=== PATIENT | female | born 1950 | race Caucasian/White ===

== ENCOUNTER 2018-07-26 01:31 | Emergency (ER) | payer MEDICARE, SELFPAY ==
[2018-07-26] VITALS (8 sets, daily range): BP systolic 123–152; BP diastolic 67–79; PULSE 86–110; RESP 16–24; TEMP 36.9; O2SAT 87–99; BMI 40.8
--- NOTE | 2018-07-26 01:36 | ED.RN ---
CALLED FOR EKG PER RN REQUEST, NO OLD EKGS IN MUSE
--- NOTE | 2018-07-26 01:38 | RAD_ITS ---
STUDY: X-RAY CHEST REASON FOR EXAM: Female, 68 years old. Chest cramping nausea TECHNIQUE: Single AP portable view of the chest. COMPARISON: None. FINDINGS: The lungs are clear and expanded. There is no demonstrated pleural abnormality. Is mild to moderate cardiac enlargement. There is a focal enlarged appearance of the right side of the heart or right middle lobe opacification. Normal mediastinum and jose roberto. Normal visualized pulmonary arteries. There is atherosclerotic calcification of the aortic arch with tortuosity. There is a levoscoliosis of the thoracic spine. Normal visualized ribs, clavicles, and shoulders. There is no demonstrated abnormality of the visualized soft tissue structures of the upper abdomen. RAD/Chest 1 View (Portable) IMPRESSION: All appearance of the right cardiophrenic angle.. Possible prominent cardiac fat pad and/or cardiac enlargement versus potentially underlying right middle lobe mass or consolidation. Electronically Signed: Shelley Aguirre MD at 2:24 EDT Tel , Service support ,
--- NOTE | 2018-07-26 01:38 | EKG12_ITS ---
Test Reason : CHEST PAIN Blood Pressure : / mmHG Vent. Rate : 107 BPM Atrial Rate : 107 BPM P-R Int : 168 ms QRS Dur : 096 ms QT Int : 342 ms P-R-T Axes : 053 025 058 degrees QTc Int : 456 ms Sinus tachycardia Low voltage QRS Borderline ECG Confirmed by RAJAN SANDERS MD ([id number]), film editor supervisor SAMSON RAMIREZ ([id number] on 08/02/2018 2:03:44 PM Referred By: MARY Confirmed By:RAJAN SANDERS MD
[2018-07-26 01:45] LABS: Absolute Lymphocyte Count 1.17 X10^3/ul (0.83-4.51); Absolute Neutrophil Count 11.5 X10^3/uL (2.0-7.7); Basophil# 0.03 X10^3/uL; Basophil% 0.2 % (0-1); Eosinophil# 0.39 X10^3/uL; Eosinophils% 2.8 % (0-5); Hematocrit 43.3 % (37-47); Hemoglobin 14.8 g/dl (12.0-15.0); Lymphocyte # 1.17 X10^3/ul (4.0); Lymphocyte % 8.4 % (19-41); Mean Corp Hgb Conc 34.2 g/gl (32-36); Mean Corpuscular Hgb 29.9 pg (27.0-32.0); Mean Corpuscular Volume 87.5 fL (81-99); Mean Platelet Vol. 9.1 fl (6.2-12.0); Monocyte# 0.78 X10^3/uL; Monocyte% 5.6 % (0-10); Neutrophil # 11.53 X10^3/uL (2.7-7.7); Neutrophil % 82.6 % (47-70); Platelet Count 331 K/mm3 (150-450); RBC Distribution Width CV 14.1 % (11.6-14.6); Red Blood Count 4.95 M/mm3 (4.2-5.4)
[2018-07-26 01:47] LABS: POSITIVE COUNT NO; POSITIVE DIFFERENTIAL NO; POSITIVE MORPHOLOGY NO
[2018-07-26 01:50] LABS: International Normalized Ratio 1.2; Prothrombin Time (Protime)PT. 14.9 SECONDS (11.7-14.9)
--- NOTE | 2018-07-26 02:00 | CT_ITS ---
STUDY: CT ABDOMEN AND PELVIS WITHOUT CONTRAST REASON FOR EXAM: Female, 68 years old. Chest cramping. Nausea and vomiting. Right upper quadrant pain. RADIATION DOSAGE (If Supplied By Facility): CTDIvol = ( 21.39 ) mGy, DLP = ( 993.88 ) mGycm TECHNIQUE: Transaxial images were obtained from the dome of the diaphragm to the symphysis pubis without oral contrast, and without intravenous contrast. Sagittal and coronal images were reconstructed. Individualized dose optimization techniques were used for this CT. COMPARISON: Chest x-ray 07/26/2018. FINDINGS: The visualized lung bases are unremarkable. The visualized portions of the heart are within normal limits. There is decreased attenuation of the liver consistent with steatosis. Normal gallbladder and extrahepatic biliary system. Normal spleen. Normal pancreas. Normal bilateral adrenal glands. Normal right kidney. Normal left kidney. There is a small hiatal hernia. There is a 1.9 cm diverticulum of the duodenal sweep. Otherwise normal small intestine. There are multiple colonic diverticula consistent with diverticulosis. A very diminutive normal appendix is seen on axial images 100-106. There is atherosclerotic calcification of the abdominal aorta, without a demonstrated aneurysm. Normal inferior vena cava. Normal retroperitoneum. Normal urinary bladder. There is a small left inguinal hernia containing fat, but no bowel. There are multilevel degenerative changes of the visualized lumbar spine. CT/Abdomen/Pelvis without Cont IMPRESSION: Small hiatal hernia. Colonic diverticulosis. Small duodenal diverticulum. No evidence for acute diverticulitis. Atherosclerosis. Fatty liver. No evidence for acute pathology. Electronically Signed: Isaak Sheffield MD at 3:22 EDT , Service support ,
--- NOTE | 2018-07-26 02:02 | ED.VISSUMM ---
- ER Visit Summary Date of Service: 07/26/18 Chief Complaint: Vomiting and epigastric pain History of Present Illness: The patient is a 68 F who presents for several hours of vomiting and epigastric pain. Patient states she was driving home when she began having vomiting. This was followed by abdominal cramping in the substernal and epigastric region radiating under the right breast. She had multiple episodes of vomiting. It is worse when she coughs or sits up straight but is relieved by nothing. She had a fever of 100.7 at home. Her throat is sore and raw after the vomiting. She complains of cough and shortness of breath associated with the actual vomiting. Pain is radiating into the back. Patient still has her gallbladder. She denies history of drinking alcohol. Has history of diabetes and hypertension. No coronary artery disease. Physical Examination: Vital signs: afebrile, hemodynamically stable, no hypoxia on room air General: well nourished, well developed, in no distress, appears uncomfortable Skin: warm, dry, no rash, no pallor HEENT: normocephalic and atraumatic; PERRL, EOMI, moist mucous membranes Cardiovascular: Tachycardic rate and rhythm without murmurs, no peripheral edema, 2+ pulses all distal extremities Respiratory: No increased work of breathing, lungs are clear to auscultation bilaterally, no rales, rhonchi or wheezing Abdominal: Abdomen is soft, tender in the epigastrium and right upper quadrant, with normoactive bowel sounds, no guarding or rebound, no masses MSK: Moves all extremities, no deformities, normal strength Neuro: Awake and alert, oriented ?4. No facial droop, sensation and motor function intact and symmetric Test Results: Abnormal Lab Results 07/26/18 07/26/18 07/26/18 01:34 01:34 01:34 WBC 14.0 H RBC 4.95 Hgb 14.8 Hct 43.3 MCV 87.5 MCH 29.9 MCHC 34.2 RDW 14.1 RDW Differential 44.0 H Plt Count 331 MPV 9.1 Immature Gran % (Auto) 0.400 Neut % (Auto) 82.6 H Lymph % (Auto) 8.4 L [place] % (Auto) 5.6 Eos % (Auto) 2.8 Baso % (Auto) 0.2 Absolute Neuts (auto) 11.5 H Absolute Lymphs (auto) 1.17 Total Counted Not Reportable PT 14.9 INR 1.2 Sodium 138 Potassium 4.4 Chloride 104 Carbon Dioxide 25.0 Anion Gap 9 BUN 17 Creatinine 1.10 H Estim Creat Clear Calc 36.42 Est GFR (MDRD) Af Amer 63 Est GFR (MDRD) Non-Af 52 L BUN/Creatinine Ratio 15.5 Glucose 164 H Calcium 8.8 Total Bilirubin Direct Bilirubin AST ALT Alkaline Phosphatase Troponin I < 0.015 Total Protein Albumin Globulin Lipase 07/26/18 01:34 WBC RBC Hgb Hct MCV MCH MCHC RDW RDW Differential Plt Count MPV Immature Gran % (Auto) Neut % (Auto) Lymph % (Auto) [place] % (Auto) Eos % (Auto) Baso % (Auto) Absolute Neuts (auto) Absolute Lymphs (auto) Total Counted PT INR Sodium Potassium Chloride Carbon Dioxide Anion Gap BUN Creatinine Estim Creat Clear Calc Est GFR (MDRD) Af Amer Est GFR (MDRD) Non-Af BUN/Creatinine Ratio Glucose Calcium Total Bilirubin 0.50 Direct Bilirubin 0.16 AST 28 ALT 38 Alkaline Phosphatase 110 Troponin I Total Protein 7.8 Albumin 3.9 Globulin 3.9 Lipase 136 Clinical Impression(s) from Imaging Studies Chest X-Ray 07/26/18 01:38 IMPRESSION: All appearance of the right cardiophrenic angle.. Possible prominent cardiac fat pad and/or cardiac enlargement versus potentially underlying right middle lobe mass or consolidation. Electronically Signed: Shelley Aguirre MD at 2:24 EDT Tel , Service support , Abdomen/Pelvis CT 07/26/18 02:00 IMPRESSION: Small hiatal hernia. Colonic diverticulosis. Small duodenal diverticulum. No evidence for acute diverticulitis. Atherosclerosis. Fatty liver. No evidence for acute pathology. Electronically Signed: Isaak Sheffield MD at 3:22 EDT , Service support , Medications Given Sodium Chloride () 1,000 mls @ 500 mls/hr IV .Q2H SAMI Last Admin: 07/26/18 04:27 Dose: 500 mls/hr Admin: 07/26/18 02:14 Dose: 500 mls/hr Discontinued Medications Al Hydroxide/Mg Hydroxide (Mylanta Ii) 30 ml PO X1 ONE Stop: 07/26/18 05:41 Last Admin: 07/26/18 05:59 Dose: 30 ml Dicyclomine HCl (Bentyl) 20 mg PO X1 ONE Stop: 07/26/18 05:41 Last Admin: 07/26/18 05:57 Dose: 20 mg Lidocaine HCl (Xylocaine Viscous) 15 ml PO X1 ONE Stop: 07/26/18 05:41 Last Admin: 07/26/18 05:59 Dose: 15 ml Morphine Sulfate () 4 mg IV X1 ONE Stop: 07/26/18 02:01 Last Admin: 07/26/18 02:15 Dose: 4 mg Multi-Ingredient GI Drug () 1 ea PO X1 ONE Stop: 07/26/18 05:41 Last Admin: 07/26/18 06:00 Dose: Not Given Ondansetron HCl (Zofran) 4 mg IV X1 ONE Stop: 07/26/18 02:01 Last Admin: 07/26/18 02:15 Dose: 4 mg Emergency Department Course and Treatment: Patient presents with substernal and epigastric pain radiating into the right upper quadrant. Differential includes intrathoracic pathology including acute coronary syndrome, pneumonia or PE, but given patient's history of fever, tachycardia, and epigastric pain radiating into the right upper quadrant with vomiting, it is also likely an intra-abdominal process. EKG showed a sinus tachycardia without any ischemic changes. CBC, BMP, hepatic panel and lipase were performed. Patient was given morphine and Zofran as well as IV fluids for symptomatic relief. Labs showed mild leukocytosis of 14, which may be related to vomiting. No electrolyte derangements. No hepatic dysfunction, normal lipase. Troponin negative. Chest x-ray showed cardiac enlargement versus fat pad versus infiltrate. A CT the abdomen and pelvis showed no acute intra-abdominal findings and did not demonstrate any infiltrates in the visualized lung gupta. Patient had an episode of hypoxia to 86% on room air and responded well to nasal cannula oxygen. She remained tachycardic but did not have any overt shortness of breath. She continued to have the upper abdominal/lower right-sided chest pain with radiation into the back. Because of the symptoms without any other alternative diagnosis, CTA of the chest was performed to evaluate for pulmonary embolism or aortic dissection. Negative for PE and dissection. Patient had improvement in her symptoms but continued to have episodic crampiness. She was given a GI cocktail and Bentyl. She had resolution of her symptoms after this. Discussed with patient the episodes of hypoxia while she was resting, she states she does have a history of sleep apnea and usually uses a CPAP at night. Patient at no point had any symptoms with her drops and O2 saturation and denied any shortness of breath or related complaints. She ambulated to the bathroom without any difficulty. Patient was feeling better and stated that she felt well enough to go home. Patient was ambulated prior to discharge on pulse oximetry and remained in the low 90s. She had no drop in her pulse oximetry with ambulation. She remained asymptomatic. I suspect patient may be at her baseline, with pulse oximetry changes related to her body habitus, positioning with sitting with component of obesity hypoventilation syndrome, and sleep apnea. She was given prescription for Bentyl and Zofran. She is to follow-up with her efficiency clerk for further evaluation of a small hiatal hernia that was noted on her scan. Patient was discharged home with symptoms improved. Treatment Plan: [] Disposition: [] Impression: Abdominal pain with vomiting, hiatal hernia This note was generated with [employer] dictation software. It may contain incorrect words, spelling, and punctuation that were not noted in review of the chart prior to signing ED Disposition - Plan for ED Patient: Disposition: Home or Assisted Living Chief Complaint: Chest Pain Instructions: What Is a Hiatal Hernia?, ED Abdominal Pain Unkn Cause Prescriptions: Ondansetron [Zofran Odt] 4 mg PO Q8H PRN PRN #10 tab PRN Reason: Nausea Dicyclomine HCl [Bentyl] 20 mg PO TIDAC #20 cap Referrals: Inder Kruse MD [Primary Care Provider] - 1-2 Days if not improving Additional Instructions: Please follow-up with your efficiency clerk for reevaluation and discussion of whether you need an endoscopy to further evaluate your upper abdominal cramping and vomiting. Your scan did show a hiatal hernia with mild inflammation. Take the medications as prescribed as needed for symptoms. If you have any worsening of your condition or any new concerning symptoms, please return immediately to the emergency department for another evaluation.
--- NOTE | 2018-07-26 02:06 | ED.DCSUM_ITS ---
- ER Visit Summary Date of Service: 07/26/18 Chief Complaint: Vomiting and epigastric pain History of Present Illness: The patient is a 68 F who presents for several hours of vomiting and epigastric pain. Patient states she was driving home when she began having vomiting. This was followed by abdominal cramping in the substernal and epigastric region radiating under the right breast. She had multiple episodes of vomiting. It is worse when she coughs or sits up straight but is relieved by nothing. She had a fever of 100.7 at home. Her throat is sore and raw after the vomiting. She complains of cough and shortness of breath associated with the actual vomiting. Pain is radiating into the back. Patient still has her gallbladder. She denies history of drinking alcohol. Has history of diabetes and hypertension. No coronary artery disease. Physical Examination: Vital signs: afebrile, hemodynamically stable, no hypoxia on room air General: well nourished, well developed, in no distress, appears uncomfortable Skin: warm, dry, no rash, no pallor HEENT: normocephalic and atraumatic; PERRL, EOMI, moist mucous membranes Cardiovascular: Tachycardic rate and rhythm without murmurs, no peripheral edema, 2+ pulses all distal extremities Respiratory: No increased work of breathing, lungs are clear to auscultation bilaterally, no rales, rhonchi or wheezing Abdominal: Abdomen is soft, tender in the epigastrium and right upper quadrant, with normoactive bowel sounds, no guarding or rebound, no masses MSK: Moves all extremities, no deformities, normal strength Neuro: Awake and alert, oriented ?4. No facial droop, sensation and motor function intact and symmetric Test Results: Abnormal Lab Results 07/26/18 07/26/18 07/26/18 01:34 01:34 01:34 WBC 14.0 H RBC 4.95 Hgb 14.8 Hct 43.3 MCV 87.5 MCH 29.9 MCHC 34.2 RDW 14.1 RDW Differential 44.0 H Plt Count 331 MPV 9.1 Immature Gran % (Auto) 0.400 Neut % (Auto) 82.6 H Lymph % (Auto) 8.4 L [place] % (Auto) 5.6 Eos % (Auto) 2.8 Baso % (Auto) 0.2 Absolute Neuts (auto) 11.5 H Absolute Lymphs (auto) 1.17 Total Counted Not Reportable PT 14.9 INR 1.2 Sodium 138 Potassium 4.4 Chloride 104 Carbon Dioxide 25.0 Anion Gap 9 BUN 17 Creatinine 1.10 H Estim Creat Clear Calc 36.42 Est GFR (MDRD) Af Amer 63 Est GFR (MDRD) Non-Af 52 L BUN/Creatinine Ratio 15.5 Glucose 164 H Calcium 8.8 Total Bilirubin Direct Bilirubin AST ALT Alkaline Phosphatase Troponin I < 0.015 Total Protein Albumin Globulin Lipase 07/26/18 01:34 WBC RBC Hgb Hct MCV MCH MCHC RDW RDW Differential Plt Count MPV Immature Gran % (Auto) Neut % (Auto) Lymph % (Auto) [place] % (Auto) Eos % (Auto) Baso % (Auto) Absolute Neuts (auto) Absolute Lymphs (auto) Total Counted PT INR Sodium Potassium Chloride Carbon Dioxide Anion Gap BUN Creatinine Estim Creat Clear Calc Est GFR (MDRD) Af Amer Est GFR (MDRD) Non-Af BUN/Creatinine Ratio Glucose Calcium Total Bilirubin 0.50 Direct Bilirubin 0.16 AST 28 ALT 38 Alkaline Phosphatase 110 Troponin I Total Protein 7.8 Albumin 3.9 Globulin 3.9 Lipase 136 Clinical Impression(s) from Imaging Studies Chest X-Ray 07/26/18 01:38 IMPRESSION: All appearance of the right cardiophrenic angle.. Possible prominent cardiac fat pad and/or cardiac enlargement versus potentially underlying right middle lobe mass or consolidation. Electronically Signed: Shelley Aguirre MD at 2:24 EDT Tel , Service support , Abdomen/Pelvis CT 07/26/18 02:00 IMPRESSION: Small hiatal hernia. Colonic diverticulosis. Small duodenal diverticulum. No evidence for acute diverticulitis. Atherosclerosis. Fatty liver. No evidence for acute pathology. Electronically Signed: Isaak Sheffield MD at 3:22 EDT , Service support , Medications Given Sodium Chloride () 1,000 mls @ 500 mls/hr IV .Q2H SAMI Last Admin: 07/26/18 04:27 Dose: 500 mls/hr Admin: 07/26/18 02:14 Dose: 500 mls/hr Discontinued Medications Al Hydroxide/Mg Hydroxide (Mylanta Ii) 30 ml PO X1 ONE Stop: 07/26/18 05:41 Last Admin: 07/26/18 05:59 Dose: 30 ml Dicyclomine HCl (Bentyl) 20 mg PO X1 ONE Stop: 07/26/18 05:41 Last Admin: 07/26/18 05:57 Dose: 20 mg Lidocaine HCl (Xylocaine Viscous) 15 ml PO X1 ONE Stop: 07/26/18 05:41 Last Admin: 07/26/18 05:59 Dose: 15 ml Morphine Sulfate () 4 mg IV X1 ONE Stop: 07/26/18 02:01 Last Admin: 07/26/18 02:15 Dose: 4 mg Multi-Ingredient GI Drug () 1 ea PO X1 ONE Stop: 07/26/18 05:41 Last Admin: 07/26/18 06:00 Dose: Not Given Ondansetron HCl (Zofran) 4 mg IV X1 ONE Stop: 07/26/18 02:01 Last Admin: 07/26/18 02:15 Dose: 4 mg Emergency Department Course and Treatment: Patient presents with substernal and epigastric pain radiating into the right upper quadrant. Differential includes intrathoracic pathology including acute coronary syndrome, pneumonia or PE, but given patient's history of fever, tachycardia, and epigastric pain radiating into the right upper quadrant with vomiting, it is also likely an intra- abdominal process. EKG showed a sinus tachycardia without any ischemic changes. CBC, BMP, hepatic panel and lipase were performed. Patient was given morphine and Zofran as well as IV fluids for symptomatic relief. Labs showed mild leukocytosis of 14, which may be related to vomiting. No electrolyte derangements. No hepatic dysfunction, normal lipase. Troponin negative. Chest x-ray showed cardiac enlargement versus fat pad versus infiltrate. A CT the abdomen and pelvis showed no acute intra-abdominal findings and did not demonstrate any infiltrates in the visualized lung gupta. Patient had an episode of hypoxia to 86% on room air and responded well to nasal cannula oxygen. She remained tachycardic but did not have any overt shortness of breath. She continued to have the upper abdominal/lower right-sided chest pain with radiation into the back. Because of the symptoms without any other alternative diagnosis, CTA of the chest was performed to evaluate for pulmonary embolism or aortic dissection. Negative for PE and dissection. Patient had imp rovement in her symptoms but continued to have episodic crampiness. She was given a GI cocktail and Bentyl. She had resolution of her symptoms after this. Discussed with patient the episodes of hypoxia while she was resting, she states she does have a history of sleep apnea and usually uses a CPAP at night. Patient at no point had any symptoms with her drops and O2 saturation and denied any shortness of breath or related complaints. She ambulated to the bathroom without any difficulty. Patient was feeling better and stated that she felt well enough to go home. Patient was ambulated prior to discharge on pulse oximetry and remained in the low 90s. She had no drop in her pulse oximetry with ambulation. She remained asymptomatic. I suspect patient may be at her baseline, with pulse oximetry changes related to her body habitus, positioning with sitting with component of obesity hypoventilation syndrome, and sleep apnea. She was given prescription for Bentyl and Zofran. She is to follow-up with her net application support specialist for further evaluation of a small hiatal hernia that was noted on her scan. Patient was discharged home with symptoms improved. Treatment Plan: [] Disposition: [] Impression: Abdominal pain with vomiting, hiatal hernia This note was generated with [employer] dictation software. It may contain incorrect words, spelling, and punctuation that were not noted in review of the chart prior to signing ED Disposition - Plan for ED Patient: Disposition: Home or Assisted Living Chief Complaint: Chest Pain Instructions: What Is a Hiatal Hernia?, ED Abdominal Pain Unkn Cause Prescriptions: Ondansetron [Zofran Odt] 4 mg PO Q8H PRN PRN #10 tab PRN Reason: Nausea Dicyclomine HCl [Bentyl] 20 mg PO TIDAC #20 cap Referrals: Inder Kruse MD [Primary Care Provider] - 1-2 Days if not improving Additional Instructions: Please follow-up with your net application support specialist for reevaluation and discussion of whether you need an endoscopy to further evaluate your upper abdominal cramping and vomiting. Your scan did show a hiatal hernia with mild inflammation. Take the medications as prescribed as needed for symptoms. If you have any worsening of your condition or any new concerning symptoms, please return immediately to the emergency department for another evaluation.
[2018-07-26] MEDS: 0.9% Normal Saline 1,000 ML 500 ML IV ×2 (02:14→04:27)
[2018-07-26] MEDS: Ondansetron 4 MG/2 ML Vial IV (02:15)
[2018-07-26] MEDS: Morphine 4 MG/ML Syringe IV (02:15)
[2018-07-26 02:16] LABS: Anion Gap 9 (5-15); BUN 17 mg/dL (7-18); BUN/Creat Ratio 15.5 RATIO (10-20); Calcium,Total 8.8 mg/dL (8.5-10.1); Chloride 104 mmol/L (98-107); EST Glomerular Filtration Rate 52 mL/min (>60); Est Glom Filt Rate - Afr Amer 63 mL/min (>60); Estimated Creatinine Clearance 36.42 ml/min; Glucose 164 mg/dL (74-106); Potassium 4.4 mmol/L (3.5-5.1); Sodium Level 138 mmol/L (136-145)
[2018-07-26 02:20] LABS: AST(SGOT) 28 U/L (15-37); Alanine Aminotransfer ALT/SGPT 38 U/L (13-56); Albumin, Serum 3.9 g/dL (3.2-5.0); Alkaline Phosphatase 110 U/L (45-117); Bilirubin, Direct 0.16 mg/dL (0.00-0.30); Globulin 3.9 g/dL (2.2-4.2); Lipase 136 U/L (73-393); Protein, Total 7.8 g/dL (6.4-8.2)
--- NOTE | 2018-07-26 02:29 | ED.RN ---
PATIENT RESTING IN BED, OXYGEN SATURATION TO 86-88% ON ROOM AIR. APPLIED 2 L NASAL CANNULA OXYGEN LEVEL UP TO 93-95%. DR. MARY SHERWOOD.
--- NOTE | 2018-07-26 03:40 | CT_ITS ---
STUDY: CTA CHEST REASON FOR EXAM: Female, 68 years old. Right upper quadrant pain. Chest pressure. Nausea and vomiting. Hypoxia. History of hypertension and diabetes. RADIATION DOSAGE (If Supplied By Facility): CTDIvol = ( 16.50 ) mGy, DLP = ( 755.12 ) mGycm TECHNIQUE: The examination was performed with the intravenous administration of 100ML ml of Isovue 370 contrast material. Post-processing of the angiographic images was performed, with multiplanar reformation, but without 3D reconstruction. Individualized dose optimization techniques were used for this CT. COMPARISON: Noncontrast CT scan abdomen and pelvis 07/26/2018. FINDINGS: Normal enhancement of the main pulmonary artery and right and left pulmonary arteries. Normal enhancement of the bilateral peripheral pulmonary arteries. There is no demonstrated pulmonary embolism. There is mild atherosclerotic calcification of the thoracic aorta and visualized great vessels. There is no demonstrated aortic dissection. Normal heart and pericardium. There are coronary artery calcifications. There is a small hiatal hernia. There is mild infiltration of fat in the lower mediastinum, adjacent to the herniated portion of the stomach. This may represent traumatic contusion of fat related to passage through the diaphragmatic hiatus.. Alternatively, it might represent inflammation or other pathology involving the herniated portion of the stomach. Assessment of the herniated portion of the stomach is limited by nondistention. There is no mediastinal fluid collection or mediastinal emphysema to suggest gastric or esophageal perforation. There are small mediastinal lymph nodes which are normal in size and morphology.. Normal hilar regions. Normal visualized trachea and bronchi. The lungs are well expanded. Normal pulmonary parenchyma. Normal pleura. Normal chest wall structures. There are degenerative changes of thoracic spine. There is fatty infiltration of the liver. CT/CTA Chest W/WO Contrast IMPRESSION: No demonstrated pulmonary embolism or arterial dissection. Atherosclerosis. No evidence for acute cardiopulmonary pathology. Small hiatal hernia. Infiltration of lower mediastinal fat adjacent to the herniated portion of the stomach is of indeterminate significance, possibly representing inflammation or other pathology related to the herniated portion of the stomach. Would consider upper endoscopy for further evaluation. Electronically Signed: Isaak Sheffield MD at 4:28 EDT , Service support ,
[2018-07-26] MEDS: Dicyclomine 10 MG Capsule 20 MG PO (05:57)
[2018-07-26] MEDS: Mag Hydrox/Al Hydrox/Simeth 30 ML UDC PO (05:59)
--- NOTE | 2018-07-26 06:53 | DCINST.ED_ITS ---
ED Disposition - Plan for ED Patient: Disposition: Home or Assisted Living Chief Complaint: Chest Pain Instructions: ED Abdominal Pain Unkn Cause, What Is a Hiatal Hernia? Prescriptions: Ondansetron [Zofran Odt] 4 mg PO Q8H PRN PRN #10 tab PRN Reason: Nausea Dicyclomine HCl [Bentyl] 20 mg PO TIDAC #20 cap Referrals: Inder Kruse MD [Primary Care Provider] - 1-2 Days if not improving Additional Instructions: Please follow-up with your director of labor relations for reevaluation and discussion of whether you need an endoscopy to further evaluate your upper abdominal cramping and vomiting. Your scan did show a hiatal hernia with mild inflammation. Take the medications as prescribed as needed for symptoms. If you have any worsening of your condition or any new concerning symptoms, please return immediately to the emergency department for another evaluation.
== END 2018-07-26 07:22 | disposition home or self-care (01) ==
PROVIDERS: Emergency Provider Emergency Medicine; Family Provider Family Medicine; PCP Family Medicine
DX: K44.9 Diaphragmatic hernia without obstruction or gangrene (principal); R10.13 Epigastric pain; R10.11 Right upper quadrant pain; R11.2 Nausea with vomiting, unspecified; E11.9 Type 2 diabetes mellitus without complications; I10 Essential (primary) hypertension; G47.30 Sleep apnea, unspecified; E66.9 Obesity, unspecified; Z79.84 Long term (current) use of oral hypoglycemic drugs; Z79.899 Other long term (current) drug therapy
CPT/HCPCS: 71045; 71275; 74176; 80048; 80076; 83690; 84484; 85025; 85610; 93005; 96361; 96374; 96375; 99285; J7030; Q9967; A4216; J2405

== ENCOUNTER → 2018-08-25 20:00 | Outpatient (CLI) | payer MEDICARE, SELFPAY | PROVIDERS: Family Provider Family Medicine; PCP Family Medicine; Visit Provider Family Medicine | DX: G47.33 Obstructive sleep apnea (adult) (pediatric) (principal) | CPT/HCPCS: 95810; 95811 ==

== ENCOUNTER → 2018-11-28 06:54 | Outpatient (CLI) | payer MEDICARE, SELFPAY ==
[2018-07-26 01:32] VITALS: BMI 40.8
[2018-11-28 09:27] LABS: ALB/GLOB Ratio 1.2 RATIO (0.9-2.4); AST(SGOT) 44 U/L (15-37); Alanine Aminotransfer ALT/SGPT 41 U/L (13-56); Albumin, Serum 3.7 g/dL (3.2-5.0); Alkaline Phosphatase 114 U/L (45-117); Anion Gap 8 (5-15); BUN 20 mg/dL (7-18); BUN/Creat Ratio 22.4 RATIO (10-20); Calcium,Total 8.2 mg/dL (8.5-10.1); Chloride 109 mmol/L (98-107); Cholesterol 168 mg/dL (200); Creatinine, Serum 0.89 mg/dL (0.55-1.02); EST Glomerular Filtration Rate 67 mL/min (>60); Est Glom Filt Rate - Afr Amer 81 mL/min (>60); Globulin 3.2 g/dL (2.2-4.2); Glucose 125 mg/dL (74-106); High Density Lipoprotein 48 mg/dL; Potassium 4.6 mmol/L (3.5-5.1); Protein, Total 6.9 g/dL (6.4-8.2); Sodium Level 139 mmol/L (136-145); Triglycerides 120 mg/dL; Very Low Density Lipoprotein 24 mg/dL (5-40)
[2018-11-28 09:45] LABS: Hemoglobin A1c 6.5 % (4.2-6.3)
[2018-11-28 18:38] LABS: Microalbumin,Random Urine 9.3 mg/L (NO RANGE EST.); Microalbumin:Creatinine Ratio 5.9 mg/g CRE (<30 mg/g CRE)
== END ==
PROVIDERS: Family Provider Family Medicine; PCP Family Medicine; Referring Provider Family Medicine; Visit Provider Family Medicine
DX: E11.9 Type 2 diabetes mellitus without complications (principal); K21.9 Gastro-esophageal reflux disease without esophagitis; Z79.899 Other long term (current) drug therapy
CPT/HCPCS: 36415; 80053; 80061; 82043; 82570; 83036

== ENCOUNTER → 2018-12-01 19:58 | Outpatient (CLI) | payer MEDICARE, SELFPAY | PROVIDERS: Family Provider Family Medicine; PCP Family Medicine; Referring Provider Family Medicine; Visit Provider Family Medicine | DX: G47.33 Obstructive sleep apnea (adult) (pediatric) (principal) | CPT/HCPCS: 95811 ==

== ENCOUNTER → 2020-01-24 07:08 | Outpatient (CLI) | payer MEDICARE, SELFPAY ==
[2018-07-26 01:32] VITALS: BMI 40.8
[2020-01-24 07:57] LABS: Hemoglobin A1c 8.8 % (4.2-6.3)
[2020-01-24 08:04] LABS: AST(SGOT) 59 U/L (15-37); Alanine Aminotransfer ALT/SGPT 59 U/L (13-56); Albumin, Serum 3.5 g/dL (3.2-5.0); Alkaline Phosphatase 113 U/L (45-117); Anion Gap 6 (5-15); BUN 19 mg/dL (7-18); BUN/Creat Ratio 20.9 RATIO (10-20); Calcium,Total 8.8 mg/dL (8.5-10.1); Chloride 107 mmol/L (98-107); Cholesterol 166 mg/dL (200); Creatinine, Serum 0.91 mg/dL (0.55-1.02); EST Glomerular Filtration Rate 65 mL/min (>60); Est Glom Filt Rate - Afr Amer 79 mL/min (>60); Globulin 3.6 g/dL (2.2-4.2); Glucose 175 mg/dL (74-106); High Density Lipoprotein 49 mg/dL; Potassium 4.3 mmol/L (3.5-5.1); Protein, Total 7.1 g/dL (6.4-8.2); Sodium Level 138 mmol/L (136-145); Triglycerides 150 mg/dL; Very Low Density Lipoprotein 30 mg/dL (5-40)
[2020-01-24 08:47] LABS: Microalbumin,Random Urine 37.4 mg/L (NO RANGE EST.)
== END ==
PROVIDERS: PCP Family Medicine; Referring Provider Family Medicine; Visit Provider Family Medicine
DX: E11.65 Type 2 diabetes mellitus with hyperglycemia (principal)
CPT/HCPCS: 36415; 80053; 80061; 82043; 82570; 83036

== ENCOUNTER 2020-02-11 06:20 | Emergency (ER) | payer MEDICARE, SELFPAY ==
[2020-02-11 06:21] VITALS: BP 123/64; PULSE 92; RESP 18; TEMP 36.8; O2SAT 97; BMI 39.0
--- NOTE | 2020-02-11 06:46 | CT_ITS ---
STUDY: CT ABDOMEN AND PELVIS WITH CONTRAST REASON FOR EXAM: Female, 69 years old. N/V/D, RLQ PAIN, INTERMITTENT PAIN X 4 DAYS, HTN, DB, HLD RADIATION DOSAGE (If Supplied By Facility): CTDIvol = ( 14.96 ) mGy, DLP = ( 1003.37 ) mGycm TECHNIQUE: Transaxial images were obtained from the dome of the diaphragm to the symphysis pubis without oral contrast. IV 100mL Isovue-300 was administered. Sagittal and coronal images were reconstructed. Individualized dose optimization techniques were used for this CT. COMPARISON: 07/26/2018 FINDINGS: The visualized lung bases are unremarkable. The visualized portions of the heart are within normal limits. Normal liver. Normal gallbladder and extrahepatic biliary system. Normal spleen. Normal pancreas. Normal bilateral adrenal glands. Normal right kidney. Normal left kidney. Normal visualized stomach. Normal small intestine. Normal colon. The appendix is visualized and appears normal. Normal abdominal aorta. Normal inferior vena cava. Normal retroperitoneum. Normal urinary bladder. Normal abdominal wall. Normal osseous structures. CT/Abdomen/Pelvis W IV Cont ONLY IMPRESSION: Normal enhanced CT of the abdomen and pelvis. Electronically Signed: Ari Tinoco MD at 9:09 EDT Tel , Service support ,
--- NOTE | 2020-02-11 06:48 | ED.VIS.GEN ---
History of Present Illness Chief Complaint: Nausea/Vomiting/Diarrhea Narrative: 69-year-old female presents with nausea and vomiting for the past 4 to 5 days. It started gradually. She has also had countless episodes of loose watery diarrhea. She reports right lower quadrant abdominal pain as well. This started gradually. It has been fairly constant. It does wax and wane in severity. She denies any recent travel or sick contacts. No unusual food intake but she did start Trulicity recently and had her second dose 2 weeks ago. Current severity of her symptoms is moderate. Past Medical History - Allergies and Home Meds Allergies/Adverse Reactions: Allergies No Known Allergies Allergy (Verified 02/11/20 06:24) Primary Care Physician: Inder Kruse MD [Primary Care Provider] - Prior records reviewed: Yes Surgical History: no surgical history Smoking Status: Never smoker Review of Systems General: Denies: Chills, Fever, Sweats Eyes: Denies: Visual changes - bilaterally, Diplopia ENT: Denies: Rhinorrhea, Sore throat Cardiovascular: Denies: Chest pain, Palpitations Respiratory: Denies: Dyspnea, Cough, Dyspnea on exertion Gastrointestinal: Reports: Abdominal pain, Nausea, Vomiting, Diarrhea. Denies: Melena, Hematochezia Genitourinary: Denies: Dysuria, Hematuria, Frequency Musculoskeletal: Denies: Back pain, Extremity Pain Skin: Denies: Rash, Wounds Neurological: Denies: Headache, Weakness, Numbness Physical Exam Vital Signs/Narrative: Vital Signs Temp Pulse Resp BP Pulse Ox 02/11/20 06:21 98.2 F 92 18 123/64 H 97 General: Well nourished, Well developed, No Acute Distress Head: Normocephalic, Atraumatic Eyes: Perrl, EOMI ENT: No rhinorrhea, Dry mucous membranes Neck: Supple, Nontender Cardiovascular: Regular rate, Regular rhythm, No murmurs Respiratory: No distress, CTA bilaterally, Chest nontender Abdomen: Soft, Nontender, Nondistended, Normal bowel sounds Back: Nontender, Normal Inspection Extremities: Nontender, No edema Skin: Normal color, No rash Neurological: Alert, Oriented x3, Cranial nerves II-XII grossly intact, Normal Strength, Normal Sensation Psychological: Normal affect, Normal Mood Diagnostic/Tx/Re-eval - Medical Decision Making I ordered IV fluids, Zofran, labs, stool studies, and abdominal CT scan. Care will be turned over to the oncoming physician will check labs and reevaluate. ED Disposition - Plan for ED Patient: Referrals: Inder Kruse MD [Primary Care Provider] -
[2020-02-11 06:52] LABS: Absolute Neutrophil Count 8.1 X10^3/uL (2.0-7.7); Basophil# 0.03 X10^3/uL; Basophil% 0.3 % (0-1); Eosinophils% 3.4 % (0-5); Hematocrit 44.6 % (37-47); Hemoglobin 14.7 g/dL (12.0-15.0); Lymphocyte % 16.1 % (19-41); Mean Corpuscular Hgb 28.8 pg (27.0-32.0); Mean Corpuscular Volume 87.3 fL (81-99); Mean Platelet Vol. 9.3 fl (6.2-12.0); Monocyte# 1.25 X10^3/uL; Monocyte% 10.6 % (0-10); NRBC Flagged by Analyzer 0 % (0-5); Neutrophil # 8.14 X10^3/uL (2.7-7.7); Platelet Count 330 K/mm3 (150-450); RBC Distribution Width CV 13.9 % (11.6-14.6); RBC Distribution Width SD 43.7 fl (35.1-43.9); Red Blood Count 5.11 M/mm3 (4.2-5.4); White Blood Count 11.8 K/mm3 (4.4-11.0)
[2020-02-11] MEDS: Ondansetron 4 MG/2 ML Vial IV (06:57)
[2020-02-11] MEDS: 0.9% Normal Saline 1,000 ML 1000 ML IV (06:57)
[2020-02-11 07:07] LABS: AST(SGOT) 40 U/L (15-37); Alanine Aminotransfer ALT/SGPT 58 U/L (13-56); Albumin, Serum 3.5 g/dL (3.2-5.0); Alkaline Phosphatase 100 U/L (45-117); Anion Gap 8 (5-15); BUN 41 mg/dL (7-18); BUN/Creat Ratio 26.8 RATIO (10-20); Bilirubin, Direct 0.19 mg/dL (0.00-0.30); Calcium,Total 8.2 mg/dL (8.5-10.1); Chloride 109 mmol/L (98-107); Creatinine, Serum 1.53 mg/dL (0.55-1.02); EST Glomerular Filtration Rate 36 mL/min (>60); Est Glom Filt Rate - Afr Amer 43 mL/min (>60); Estimated Creatinine Clearance 27.06 ml/min; Globulin 3.6 g/dL (2.2-4.2); Glucose 173 mg/dL (74-106); Lipase 180 U/L (73-393); Potassium 4.1 mmol/L (3.5-5.1); Protein, Total 7.1 g/dL (6.4-8.2); Sodium Level 137 mmol/L (136-145)
[2020-02-11 07:30] LABS: Color, Urine Yellow (Yellow); Glucose, Dipstick Normal (Normal); Ketone-Dipstick 5 mg/dl (Negative); Leukocyte Esterase-Dipstick 500 /ul (Negative); Mucous, Urine 0 SEEN /hpf (<or=2+); Nitrite-Dipstick Positive (Negative); Occult Blood-Urine 10 /ul (Negative); Protein-Dipstick 30 mg/dl (Negative); Specific Gravity, Urine 1.025 (1.002-1.030); Urine Clarity Sl. Cloudy (Clear); Urine Urobilinogen 1 mg/dl (Normal)
[2020-02-11 07:31] LABS: Urine Bilirubin Dipstick 3 mg/dL (Negative)
[2020-02-11 07:32] LABS: Bacteria 2+ /hpf (None Seen); Red Blood Cells-Urine 0-5 SEEN /hpf (0-5); Squamous Epithelial Cells - UA 0-5 SEEN /hpf (5-10); White Blood Cells 25-50 SEEN /hpf (0-5)
[2020-02-11 09:12] VITALS: BP 107/64; PULSE 82; RESP 18; O2SAT 94
--- NOTE | 2020-02-11 10:01 | ED.DEP ---
ED Disposition - Plan for ED Patient: Disposition: Home or Assisted Living Diagnosis: Gastroenteritis, Medication reaction Instructions: ED Vomiting and Diarrhea Nonspecific Adult Prescriptions: Nitrofurantoin Macrocrystals [Macrobid] 100 mg PO Q12 #10 cap Transmission Status: Pending to [facility] Ondansetron [Zofran Odt] 4 mg PO Q8H PRN PRN #20 tab PRN Reason: Nausea Transmission Status: Received by [facility] Referrals: Inder Kruse MD [Primary Care Provider] - 3-5 Days
--- NOTE | 2020-02-14 10:04 | ED.DEP ---
ED Disposition - Plan for ED Patient: Disposition: Home or Assisted Living Diagnosis: Gastroenteritis, Medication reaction Instructions: ED Vomiting and Diarrhea Nonspecific Adult Prescriptions: Smz/Tmp Ds [Bactrim Ds] 1 tab PO BID #14 tab Transmission Status: Pending to [facility] Nitrofurantoin Macrocrystals [Macrobid] 100 mg PO Q12 #10 cap Transmission Status: Received by [facility] Ondansetron [Zofran Odt] 4 mg PO Q8H PRN PRN #20 tab PRN Reason: Nausea Transmission Status: Received by [facility] Referrals: Inder Kruse MD [Primary Care Provider] - 3-5 Days Additional Instructions: On 13 February urine culture returned. The electronic prescription for nitrofurantoin apparently was never successfully transmitted to the pharmacy. Based on the sensitivities we will prescribe Bactrim. Patient was called and she is currently asymptomatic.
--- NOTE | 2020-02-14 10:10 | ED.RN ---
pt called to see about how she is doing. pt states that she is still having diarrhea and is taking antidiarreals and nausea that she is taking zofran for. Pt was asked about urine symptoms and she denied this. Pt was supposed to take macrobid and there was a mess up at the pharmacy. Pt never recieved the macrobid. Dr Weiner is changing rx to Bactrim instead based on culture results. Pharmacy called and rx is there and will be ready in 20 minutes. Pt was called and is aware of this.
== END 2020-02-11 10:23 | disposition home or self-care (01) ==
PROVIDERS: Emergency Medicine; Emergency Provider Emergency Medicine; PCP Family Medicine
DX: N17.9 Acute kidney failure, unspecified (principal); N39.0 Urinary tract infection, site not specified
CPT/HCPCS: 74177; 80048; 80076; 81001; 83690; 85025; 87077; 87086; 87088; 87186; 96361; 96374; 99284; J7030; Q9967; A4216; J2405

== ENCOUNTER → 2020-02-23 08:51 | Outpatient (CLI) | payer MEDICARE, SELFPAY ==
[2020-02-11 06:21] VITALS: BMI 39.0
[2020-02-23 09:13] LABS: Mucous, Urine 0 SEEN /hpf (<or=2+); Red Blood Cells-Urine 0 SEEN /hpf (0-5)
[2020-02-23 09:37] LABS: Absolute Neutrophil Count 7.7 X10^3/uL (2.0-7.7); Basophil# 0.17 X10^3/uL; Color, Urine Straw (Yellow); Eosinophils% 29.7 % (0-5); Glucose, Dipstick Normal (Normal); Hematocrit 39.3 % (37-47); Hemoglobin 12.9 g/dL (12.0-15.0); Ketone-Dipstick Negative (Negative); Leukocyte Esterase-Dipstick 500 /ul (Negative); Lymphocyte % 16.4 % (19-41); Mean Corp Hgb Conc 32.8 g/dL (32-36); Mean Corpuscular Hgb 28.8 pg (27.0-32.0); Mean Corpuscular Volume 87.7 fL (81-99); Mean Platelet Vol. 9.4 fl (6.2-12.0); Monocyte# 0.89 X10^3/uL; NRBC Flagged by Analyzer 0 % (0-5); Neutrophil # 7.68 X10^3/uL (2.7-7.7); Neutrophil % 43.2 % (47-70); Nitrite-Dipstick Positive (Negative); Occult Blood-Urine 10 /ul (Negative); POSITIVE DIFFERENTIAL YES; Platelet Count 214 K/mm3 (150-450); Protein-Dipstick Negative (Negative); RBC Distribution Width CV 14.2 % (11.6-14.6); RBC Distribution Width SD 44.6 fl (35.1-43.9); Red Blood Count 4.48 M/mm3 (4.2-5.4); Specific Gravity, Urine 1.015 (1.002-1.030); Urine Bilirubin Dipstick Negative (Negative); Urine Clarity Sl. Cloudy (Clear); Urine Urobilinogen Normal (Normal); White Blood Count 17.7 K/mm3 (4.4-11.0)
[2020-02-23 09:49] LABS: Differential Indicated SCAN CRITERIA MET; Eosinophil# 5.26 X10^3/uL
[2020-02-23 09:55] LABS: Renal Epithelial Cells 0-5 SEEN /hpf (0-5); Squamous Epithelial Cells - UA 0-5 SEEN /hpf (5-10); White Blood Cells 50-100 SEEN /hpf (0-5)
[2020-02-23 09:56] LABS: Bacteria 4+ /hpf (None Seen)
[2020-02-23 10:07] LABS: ALB/GLOB Ratio 0.8 RATIO (0.9-2.4); AST(SGOT) 70 U/L (15-37); Alanine Aminotransfer ALT/SGPT 49 U/L (13-56); Albumin, Serum 2.9 g/dL (3.2-5.0); Alkaline Phosphatase 132 U/L (45-117); Anion Gap 4 (5-15); BUN 14 mg/dL (7-18); BUN/Creat Ratio 15.2 RATIO (10-20); Calcium,Total 8.4 mg/dL (8.5-10.1); Chloride 112 mmol/L (98-107); Creatinine, Serum 0.92 mg/dL (0.55-1.02); EST Glomerular Filtration Rate 64 mL/min (>60); Est Glom Filt Rate - Afr Amer 77 mL/min (>60); Globulin 3.5 g/dL (2.2-4.2); Glucose 133 mg/dL (74-106); Potassium 4.2 mmol/L (3.5-5.1); Protein, Total 6.4 g/dL (6.4-8.2); Sodium Level 143 mmol/L (136-145)
[2020-02-25 11:57] LABS: Pathologist Review Reviewed
== END ==
PROVIDERS: PCP Family Medicine; Visit Provider Family Medicine
DX: R19.7 Diarrhea, unspecified (principal); N30.00 Acute cystitis without hematuria; N17.9 Acute kidney failure, unspecified
CPT/HCPCS: 36415; 80053; 81001; 85025; 87077; 87086; 87088; 87186

== ENCOUNTER → 2020-03-17 16:33 | Outpatient (CLI) | payer MEDICARE, SELFPAY | PROVIDERS: PCP Family Medicine; Referring Provider Family Medicine; Visit Provider Family Medicine | DX: N30.01 Acute cystitis with hematuria (principal) ==

== ENCOUNTER → 2020-03-18 07:10 | Outpatient (CLI) | payer MEDICARE, SELFPAY | PROVIDERS: PCP Family Medicine; Referring Provider Family Medicine; Visit Provider Family Medicine | DX: N30.01 Acute cystitis with hematuria (principal) | CPT/HCPCS: 87077; 87086; 87088; 87186 ==

== ENCOUNTER → 2020-04-02 08:39 | Outpatient (CLI) | payer MEDICARE, SELFPAY ==
--- NOTE | 2020-04-02 08:49 | US_ITS ---
INDICATION: Recurrent UTI.. COMPARISON: None. TECHNIQUE: The urinary bladder was evaluated. A combination of grayscale, B-mode, and color Doppler imaging was utilized. Pre and postvoid views were obtained FINDINGS: Bladder: No intrinsic masses, stones, or abnormal dilatation noted. Prevoid volume is 130 cc. Postvoid volume is 0 cc. IMPRESSION: Urinary bladder ultrasound is within normal limits.. US/Kidney and Bladder IMPRESSION: Negative bladder ultrasound. Electronically Signed: Renzo Navarrete, at 10:51 EDT , Service support ,
== END ==
PROVIDERS: PCP Family Medicine; Referring Provider Family Medicine; Visit Provider Family Medicine
DX: N39.0 Urinary tract infection, site not specified (principal); R39.89 Other symptoms and signs involving the genitourinary system
CPT/HCPCS: 51798; 76770

== ENCOUNTER 2020-06-04 06:43 | Day surgery (SDC) | payer MEDICARE, SELFPAY ==
[2020-06-04 07:04] VITALS: BP 149/92; PULSE 86; RESP 16; TEMP 36.6; O2SAT 95; BMI 39.6
[2020-06-04 07:15] LABS: Bedside Glucose 257 mg/dL (70-110)
[2020-06-04] MEDS: Bupivacaine Mpf 0.5% 30 ML VIAL (08:01)
[2020-06-04] MEDS: Triamcinolone Acetonide 40 MG/ML Vial (08:01)
--- NOTE | 2020-06-04 08:06 | PCM.OPRPT ---
Report of Operation Date of Procedure: 06/04/20 Pre-Operative Diagnosis: Right hip osteoarthritis Post-Operative Diagnosis: Right hip osteoarthritis Surgery/Procedure Performed:: Right hip fluoroscopic injection Description of Surgical Findings:: Successful intra-articular injection Type of Anesthesia:: Local Estimated Blood Loss (mL): 0 Fluids Replaced: 0 Description of Procedure: Patient was brought back to the room. She was placed on the table in supine position. X-ray was used to find the hip joint. We localized the hip using a spinal needle. This was marked. The area was prepped with chlorhexidine. Injection site was anesthetized with 3 cc of lidocaine. The area was draped out with blue towels. Live x-ray was used to guide the needle into the hip joint. Once we were down to the joint dye was injected. Once the dye was injected and we verified we were in the joint 2 cc of Kenalog and 3 cc of 0.5% Marcaine were injected into the joint successfully. Needle was removed. Pressure was held and a Band-Aid was placed. Postop plan: Patient can be activity as tolerated follow-up in office as needed. - Complications No intraoperative complications - Admit VTE Documentation VTE Present on Admission: No VTE Pharm Prophylaxis ordered?: No Reason prophylaxis not ordered:: Treatment Not Indicated
[2020-06-04 08:15] VITALS: BP 119/65; PULSE 73; RESP 16; TEMP 36.1; O2SAT 97
--- NOTE | 2020-06-04 08:26 | SUR.PHASEII ---
NO DC INSTRUCTIONS IN COMPUTER. RN CALLED DR. OH'S OFFICE; THEY STATE NO INSTRUCTIONS IN OFFICE CHART EITHER. PT. HAS FOLLOW UP ALREADY ARRANGED FOR FUTURE SURGERY.
== END 2020-06-04 09:09 | disposition home or self-care (01) ==
LOC: SDC 06:46 → AC 06:47
PROVIDERS: PCP Family Medicine; Referring Provider Specialist; Visit Provider Specialist
PROC: 3E0U3GC Introduction of Other Therapeutic Substance into Joints, Percutaneous Approach (ICD-10-PCS; CPT 20610; principal; 2020-06-04 07:55)
DX: M16.11 Unilateral primary osteoarthritis, right hip (principal); Z79.899 Other long term (current) drug therapy; G47.30 Sleep apnea, unspecified; E11.9 Type 2 diabetes mellitus without complications; I25.10 Atherosclerotic heart disease of native coronary artery without angina pectoris; I10 Essential (primary) hypertension; Z79.84 Long term (current) use of oral hypoglycemic drugs; E66.8 Other obesity; Z68.39 Body mass index [BMI] 39.0-39.9, adult
CPT/HCPCS: 20610; 76000; 82962

== ENCOUNTER → 2021-01-15 06:51 | Outpatient (CLI) | payer MEDICARE, SELFPAY ==
[2021-01-15 07:20] LABS: Absolute Lymphocyte Count 1.91 X10^3/uL (0.83-4.51); Absolute Neutrophil Count 6.5 X10^3/uL (2.0-7.7); Basophil# 0.06 X10^3/uL; Basophil% 0.6 % (0-1); Eosinophil# 0.47 X10^3/uL; Eosinophils% 4.8 % (0-5); Hematocrit 41.1 % (37-47); Hemoglobin 13.2 g/dL (12.0-15.0); Lymphocyte # 1.91 X10^3/ul (0.83-4.51); Lymphocyte % 19.4 % (19-41); Mean Corp Hgb Conc 32.1 g/dL (32-36); Mean Corpuscular Hgb 28.4 pg (27.0-32.0); Mean Corpuscular Volume 88.6 fL (81-99); Monocyte# 0.78 X10^3/uL; Monocyte% 7.9 % (0-10); NRBC Flagged by Analyzer 0 % (0-5); Neutrophil # 6.53 X10^3/uL (2.7-7.7); Neutrophil % 66.2 % (47-70); Platelet Count 334 K/mm3 (150-450); RBC Distribution Width CV 13.5 % (11.6-14.6); RBC Distribution Width SD 43.7 fl (35.1-43.9); Red Blood Count 4.64 M/mm3 (4.2-5.4); White Blood Count 9.9 K/mm3 (4.4-11.0)
[2021-01-15 07:50] LABS: AST(SGOT) 55 U/L (15-37); Alanine Aminotransfer ALT/SGPT 46 U/L (13-56); Albumin, Serum 3.5 g/dL (3.2-5.0); Alkaline Phosphatase 146 U/L (45-117); Anion Gap 6 (5-15); BUN 17 mg/dL (7-18); BUN/Creat Ratio 18.9 RATIO (10-20); Calcium,Total 8.9 mg/dL (8.5-10.1); Chloride 107 mmol/L (98-107); Cholesterol 152 mg/dL (200); EST Glomerular Filtration Rate 66 mL/min (>60); Est Glom Filt Rate - Afr Amer 79 mL/min (>60); Globulin 3.4 g/dL (2.2-4.2); Glucose 152 mg/dL (74-106); High Density Lipoprotein 55 mg/dL; Potassium 4.4 mmol/L (3.5-5.1); Protein, Total 6.9 g/dL (6.4-8.2); Sodium Level 140 mmol/L (136-145); Triglycerides 159 mg/dL; Very Low Density Lipoprotein 32 mg/dL (5-40)
[2021-01-15 13:09] LABS: Microalbumin,Random Urine 33.1 mg/L (NO RANGE EST.); Microalbumin:Creatinine Ratio 35.4 mg/g CRE (<30 mg/g CRE)
== END ==
PROVIDERS: PCP Family Medicine; Referring Provider Family Medicine; Visit Provider Family Medicine
DX: E11.59 Type 2 diabetes mellitus with other circulatory complications (principal); I10 Essential (primary) hypertension; K21.9 Gastro-esophageal reflux disease without esophagitis; Z79.899 Other long term (current) drug therapy
CPT/HCPCS: 36415; 80053; 80061; 82043; 82570; 83036; 85025

== ENCOUNTER 2021-12-23 07:32 | Outpatient (CLI) | payer MEDICARE, SELFPAY ==
[2021-12-23 08:22] LABS: Hemoglobin A1c 6.8 % (3.8-5.6)
[2021-12-23 08:27] LABS: ALB/GLOB Ratio 1.1 RATIO (0.9-2.4); AST(SGOT) 25 U/L (15-37); Alanine Aminotransfer ALT/SGPT 27 U/L (13-56); Albumin, Serum 3.7 g/dL (3.2-5.0); Alkaline Phosphatase 97 U/L (45-117); Anion Gap 3 (5-15); BUN 18 mg/dL (7-18); BUN/Creat Ratio 16.8 RATIO (10-20); Calcium,Total 9.3 mg/dL (8.5-10.1); Chloride 107 mmol/L (98-107); Cholesterol 151 mg/dL (200); Creatinine, Serum 1.07 mg/dL (0.55-1.02); EST Glomerular Filtration Rate 54 mL/min (>60); Est Glom Filt Rate - Afr Amer 65 mL/min (>60); Globulin 3.4 g/dL (2.2-4.2); Glucose 127 mg/dL (74-106); High Density Lipoprotein 53 mg/dL; Microalbumin,Random Urine 22.4 mg/L (NO RANGE EST.); Microalbumin:Creatinine Ratio 32.8 mg/g CRE (<30 mg/g CRE); Potassium 4.6 mmol/L (3.5-5.1); Protein, Total 7.1 g/dL (6.4-8.2); Sodium Level 138 mmol/L (136-145); Triglycerides 154 mg/dL; Very Low Density Lipoprotein 31 mg/dL (5-40)
== END 2021-12-23 23:59 | disposition home or self-care (01) ==
PROVIDERS: PCP Family Medicine; Referring Provider Family Medicine; Visit Provider Family Medicine
DX: E11.69 Type 2 diabetes mellitus with other specified complication (principal); I10 Essential (primary) hypertension; Z79.899 Other long term (current) drug therapy
CPT/HCPCS: 36415; 80053; 80061; 82043; 82570; 83036

== ENCOUNTER 2022-01-16 19:57 | Emergency (ER) | payer MEDICARE, SELFPAY ==
[2022-01-16 19:58] VITALS: BP 144/71; PULSE 97; RESP 16; TEMP 38.2; O2SAT 96; BMI 33.8
--- NOTE | 2022-01-16 20:02 | EDS_ITS ---
HPI <Dr. Kimberly Sweeney MD - Last Filed: 01/17/22 01:24> History of Present Illness Chief Complaint: Cold Sx <GAYLA NAVARRO - Last Filed: 01/16/22 22:16> History of Present Illness Informant: patient Onset/Context/Timing Onset: Days (7) Timing: Continuous Narrative Narrative: Patient presents secondary to runny nose, cough, fever, body aches, headache, and fatigue. Patient states this all began on Tuesday with chills. Patient was evaluated at [facility] urgent care on or Tuesday; at which time, a chest x-ray and COVID/flu swab were obtained. Patient states at that time chest x-ray was negative for pneumonia and both COVID and flu were also negative. Patient denies sick contacts. Patient states that she has taken ibuprofen previously this week, but has not taken any medication today. [facility] <Dr. Kimberly Sweeney MD - Last Filed: 01/17/22 01:24> [facility] Medical History (Updated 01/16/22 @ 22:16 by GAYLA NAVARRO) Bilateral artificial lens implant Diabetes Hypertension Home Medications dulaglutide [Trulicity] 1.5 mg SUBCUT QWEEK 07/26/18 [History Last Taken Unknown] lisinopril 5 mg PO DAILY 07/26/18 [History Last Taken Unknown] metformin 500 mg PO BID 07/26/18 [History Last Taken Unknown] simvastatin 40 mg PO QHS 07/26/18 [History Last Taken Unknown] levofloxacin 750 mg PO DAILY #4 tab 01/16/22 [Rx Last Taken Unknown] ropinirole 4 mg PO DAILY 01/16/22 [History Last Taken Unknown] trazodone 50 mg PO QHS 01/16/22 [History Last Taken Unknown] Allergy/AdvReac Type Severity Reaction Status Date / Time No Known Allergies Allergy Verified 01/16/22 20:01 Social History (Updated 01/16/22 @ 20:34 by GAYLA NAVARRO) Smoking Status: Never smoker alcohol intake: never substance use type: does not use <GAYLA NAVARRO - Last Filed: 01/16/22 22:16> ROS ED Constitutional Constitutional ED: Reports chills and fever(s) Eyes Eyes: Denies change in vision ENT ENT ED: Reports rhinorrhea; Denies ear pain or sore throat Cardiovascular Cardiovascular: Reports chest pain Respiratory/Chest Respiratory/Chest: Reports cough and dyspnea Gastrointestinal Gastrointestinal: Denies abdominal pain, constipation, diarrhea, nausea or vomiting Genitourinary Genitourinary ED: Reports urinary frequency; Denies dysuria or hematuria Musculoskeletal Musculoskeletal: Reports myalgias; Denies arthralgias Integumentary Denies rash Neurologic Neurologic: Reports headache(s); Denies weakness Psychiatric Psychiatric: Denies anxiety or depression Endocrine Endocrinology: Denies polydipsia, polyphagia or polyuria EXAM <Dr. Kimberly Sweeney MD - Last Filed: 01/17/22 01:24> Physical Exam Const Vital Signs: 01/16/22 19:58 01/16/22 20:14 01/16/22 22:26 Temperature 100.8 F H Temperature Source Oral Pulse Rate 97 85 Respiratory Rate 16 18 Respiratory Effort Normal Non-Labored Respiratory Pattern Normal Blood Pressure 144/71 H 130/69 H Blood Pressure Mean 95 Pulse Ox 96 98 Oxygen Delivery Method Room Air <GAYLA NAVARRO - Last Filed: 01/16/22 22:16> Physical Exam Const Vital Signs: 01/16/22 19:58 01/16/22 20:14 01/16/22 22:26 Temperature 100.8 F H Temperature Source Oral Pulse Rate 97 85 Respiratory Rate 16 18 Respiratory Effort Normal Non-Labored Respiratory Pattern Normal Blood Pressure 144/71 H 130/69 H Blood Pressure Mean 95 Pulse Ox 96 98 Oxygen Delivery Method Room Air Positive well nourished and well developed General Appearance ED: well developed HEENT Reports moist mucous membranes Negative for trauma or tenderness Eyes PERRL and EOMs intact bilaterally Neck no lymphadenopathy and supple Chest Wall inspection of chest normal Chest: other Generalized tenderness to palpation of chest wall Resp normal respiratory effort Auscultation: diminished lung sounds bilateral lower Cardio regular rate, regular rhythm and no murmurs GI normal to inspection, nondistended, normoactive bowel sounds Back/Spine no CVA tenderness Extremity normal to inspection General Extremety ED: Negative for edema or tenderness General Extremity: Negative for edema Neuro oriented x3 Sensorium / Orientation: alert Motor Exam: strength 5/5 throughout Psych mental status grossly normal Skin no rashes or lesions noted MDM <Dr. Kimberly Sweeney MD - Last Filed: 01/17/22 01:24> [facility] Lab Data Labs: Laboratory Results - last 24 hr 01/16/22 01/16/22 20:40 20:40 WBC 14.5 H RBC 4.18 L Hgb 12.2 Hct 35.8 L MCV 85.6 MCH 29.2 MCHC 34.1 RDW Std Deviation 41.0 RDW Coeff of Kathleen 13.2 Plt Count 296 MPV 9.1 Immature Gran % (Auto) 0.600 Neut % (Auto) 79.5 H Lymph % (Auto) 7.1 L [place] % (Auto) 11.2 H Eos % (Auto) 1.4 Baso % (Auto) 0.2 Absolute Neuts (auto) 11.5 H Absolute Lymphs (auto) 1.03 Nucleated RBC % 0 Differential Comment SCANNED Diff Path Review January foll Sodium 134 L Potassium 4.5 Chloride 103 Carbon Dioxide 26.0 Anion Gap 5 BUN 17 Creatinine 1.13 H Estim Creat Clear Calc 35.59 Est GFR (MDRD) Af Amer 61 Est GFR (MDRD) Non-Af 50 L BUN/Creatinine Ratio 15.0 Glucose 197 H Calcium 8.4 L Radiography Diagnostic Testing: Clinical Impression(s) from Imaging Studies Chest X-Ray 01/16/22 20:35 IMPRESSION: Ill-defined bilateral upper lobe infiltrates suggesting pneumonia. Electronically Signed: David Sanders MD (Brooks) at 21:02 EDT Reading Location ID and State: [facility] / [place] , Service support , Treatment and Re-Evaluation Narrative: Patient seen and evaluated with PUBLIC POLICY ANALYST student. I personally interviewed and examined the patient. I was involved in all aspects of patient's orders, interpretation of results, and treatment. Patient presents with 6 days of URI symptoms with cough and congestion along with body aches and low-grade fevers. She was seen at urgent care recently where COVID and influenza test were negative. Chest x-ray at that time showed no infiltrate. Patient presents the ER today stating she is still just does not feel well. Patient lying in bed in no acute distress. Nontoxic-appearing. Head and neck examination reveals mild eye discharge. No conjunctival injection. Heart is regular rate and rhythm. Lung sounds slightly diminished throughout. Abdomen is soft nontender. Lab work and chest x-ray obtained. EKG obtained and reveals sinus rhythm at 83 bpm with no acute ischemia. QTC is 448. Lab work reveals elevated white count at 14.5 with mild left shift. Chemistry studies largely unremarkable. Glucose elevated at 197. Chest x-ray is read by radiology as bilateral upper lobe infiltrates. Chest x-ray appears to show chronic changes per my interpretation. With patient having low-grade fever, cough, elevated white count she will be treated with a course of Levaquin. Return instructions are provided. <GAYLA NAVARRO - Last Filed: 01/16/22 22:16> [facility] MDM Narrative Medical decision making narrative: Tylenol ordered for fever. Toradol ordered for body aches. CBC, BMP, chest x-ray to be obtained. Lab Data Attestation: I reviewed the patient's lab results. Labs: Laboratory Results - last 24 hr 01/16/22 01/16/22 20:40 20:40 WBC 14.5 H RBC 4.18 L Hgb 12.2 Hct 35.8 L MCV 85.6 MCH 29.2 MCHC 34.1 RDW Std Deviation 41.0 RDW Coeff of Kathleen 13.2 Plt Count 296 MPV 9.1 Immature Gran % (Auto) 0.600 Neut % (Auto) 79.5 H Lymph % (Auto) 7.1 L Bo[place] % (Auto) 11.2 H Eos % (Auto) 1.4 Baso % (Auto) 0.2 Absolute Neuts (auto) 11.5 H Absolute Lymphs (auto) 1.03 Nucleated RBC % 0 Differential Comment SCANNED Diff Path Review May foll Sodium 134 L Potassium 4.5 Chloride 103 Carbon Dioxide 26.0 Anion Gap 5 BUN 17 Creatinine 1.13 H Estim Creat Clear Calc 35.59 Est GFR (MDRD) Af Amer 61 Est GFR (MDRD) Non-Af 50 L BUN/Creatinine Ratio 15.0 Glucose 197 H Calcium 8.4 L Radiography Chest X-Ray - ED: 1 View, Read by ED Physician, Right Infiltrate and Left Infiltrate Diagnostic Testing: Clinical Impression(s) from Imaging Studies Chest X-Ray 01/16/22 20:35 IMPRESSION: Ill-defined bilateral upper lobe infiltrates suggesting pneumonia. Electronically Signed: David Sanders MD (Brooks) at 21:02 EDT Reading Location ID and State: [facility] / [place] , Service support , EKG Initial EKG: Attestation: I personally reviewed and interpreted this EKG as follows: Interpretation: Sinus Rhythm (The rate of 83, without sign of ischemia or hypertrophy.) Treatment and Re-Evaluation Narrative: Patient's lab work reviewed.. CBC for white count 14.5, consistent with bacterial infection. BMP unremarkable, except for creatinine of 1.13, which is just slightly higher than her last creatinine at the end of November, of 1.07. Chest x-ray reveals bilateral upper lobe infiltrates suggesting pneumonia. EKG shows sinus rhythm, with normal QTC. On reevaluation, patient is resting comfortably in the bed, and feels as if her fever is breaking. Temperature retaken and is at 99.1. Patient will be given dose of Levaquin prior to discharge, and complete remaining 4 days as outpatient. Patient is aware of symptoms with which to return to the emergency department and will follow-up with primary care physician. Discharge Plan Triage Chief Complaint: Cold Sx ED Provider: Kimberly Sweeney Dx/Rx/DC Orders Clinical Impression: Pneumonia Instructions: ED Pneumonia (Adult) Prescriptions: New levofloxacin 750 mg tablet 750 mg PO DAILY Qty: 4 RF: 0 No Action metformin 500 MG tablet 500 mg PO BID RF: 0 simvastatin 20 MG tablet 40 mg PO QHS RF: 0 lisinopril 5 MG tablet 5 mg PO DAILY RF: 0 Trulicity 1.5 MG/0.5 ML pen injector 1.5 mg subcut QWEEK RF: 0 ropinirole 2 mg tablet extended release 24 hr 4 mg PO DAILY RF: 0 trazodone 50 mg tablet 50 mg PO QHS RF: 0 Primary Care Provider: Inder Kruse Referrals: Inder Kruse MD [Primary Care Provider] - 1 Week Disposition Disposition: Home, Self Care Discharge Date/Time: 01/16/22 22:27
--- NOTE | 2022-01-16 20:35 | RAD_ITS ---
STUDY: X-RAY CHEST REASON FOR EXAM: Female, 71 years old. cough, fever TECHNIQUE: AP COMPARISON: 07/25 FINDINGS: There are patchy ill-defined opacities in the bilateral upper lobes, new. There is no demonstrated pleural abnormality. Normal size heart. Normal mediastinum and jose roberto. Normal visualized pulmonary arteries. There is atherosclerotic calcification of the aortic arch with tortuosity. No acute bony process. There is no demonstrated abnormality of the visualized soft tissue structures of the upper abdomen. RAD/Chest 1 View (Portable) IMPRESSION: Ill-defined bilateral upper lobe infiltrates suggesting pneumonia. Electronically Signed: David Sanders MD (Brooks) at 21:02 EDT ,
[2022-01-16] MEDS: Ketorolac 15 MG/ML Vial IV (20:37)
[2022-01-16] MEDS: Acetaminophen 500 MG Tablet 1000 MG PO (20:37)
[2022-01-16 20:45] LABS: Absolute Lymphocyte Count 1.03 X10^3/uL (0.83-4.51); Absolute Neutrophil Count 11.5 X10^3/uL (2.0-7.7); Basophil# 0.03 X10^3/uL; Basophil% 0.2 % (0-1); Eosinophils% 1.4 % (0-5); Hematocrit 35.8 % (37-47); Hemoglobin 12.2 g/dL (12.0-15.0); Lymphocyte # 1.03 X10^3/ul (0.83-4.51); Lymphocyte % 7.1 % (19-41); Mean Corp Hgb Conc 34.1 g/dL (32-36); Mean Corpuscular Hgb 29.2 pg (27.0-32.0); Mean Corpuscular Volume 85.6 fL (81-99); Mean Platelet Vol. 9.1 fl (6.2-12.0); Monocyte# 1.62 X10^3/uL; Monocyte% 11.2 % (0-10); NRBC Flagged by Analyzer 0 % (0-5); Neutrophil # 11.51 X10^3/uL (2.7-7.7); Neutrophil % 79.5 % (47-70); POSITIVE DIFFERENTIAL YES; Platelet Count 296 K/mm3 (150-450); RBC Distribution Width CV 13.2 % (11.6-14.6); Red Blood Count 4.18 M/mm3 (4.2-5.4); White Blood Count 14.5 K/mm3 (4.4-11.0)
[2022-01-16 20:56] LABS: Anion Gap 5 (5-15); BUN 17 mg/dL (7-18); Calcium,Total 8.4 mg/dL (8.5-10.1); Chloride 103 mmol/L (98-107); Creatinine, Serum 1.13 mg/dL (0.55-1.02); Differential Indicated SCAN CRITERIA MET; EST Glomerular Filtration Rate 50 mL/min (>60); Est Glom Filt Rate - Afr Amer 61 mL/min (>60); Estimated Creatinine Clearance 35.59 ml/min; Glucose 197 mg/dL (74-106); Potassium 4.5 mmol/L (3.5-5.1); Sodium Level 134 mmol/L (136-145)
--- NOTE | 2022-01-16 21:04 | EKG12_ITS ---
Test Reason : WEAKNESS Blood Pressure : / mmHG Vent. Rate : 083 BPM Atrial Rate : 083 BPM P-R Int : 164 ms QRS Dur : 086 ms QT Int : 382 ms P-R-T Axes : 048 030 058 degrees QTc Int : 448 ms Normal sinus rhythm Low voltage QRS Borderline ECG Confirmed by JOSSIE STOCKTON, YANIRA ([id number]), food editor RAY KANG ([id number]) on 01/19/2022 9:24:39 AM Referred By: Confirmed By:YANIRA SETHI MD
[2022-01-16] MEDS: 0.9% Normal Saline 1,000 ML 150 ML IV (21:13)
[2022-01-16 21:48] LABS: Differential Comment SCANNED
[2022-01-16] MEDS: levoFLOXacin 750 MG Tablet PO (22:21)
[2022-01-16 22:26] VITALS: BP 130/69; PULSE 85; RESP 18; O2SAT 98
[2022-01-18 10:17] LABS: Pathologist Review Reviewed
== END 2022-01-16 22:27 | disposition home or self-care (01) ==
PROVIDERS: Emergency Provider Emergency Medicine; PCP Family Medicine; Visit Provider Emergency Medicine
DX: J18.9 Pneumonia, unspecified organism (principal); E11.9 Type 2 diabetes mellitus without complications; I10 Essential (primary) hypertension; Z79.899 Other long term (current) drug therapy; Z79.84 Long term (current) use of oral hypoglycemic drugs
CPT/HCPCS: 71045; 80048; 85025; 93005; 96374; 99284; A4216

== ENCOUNTER → 2022-07-08 | Outpatient (CLI) | payer MEDICARE, SELFPAY ==
--- NOTE | 2022-07-08 11:41 | US_ITS ---
STUDY: RENAL ULTRASOUND - COMPLETE REASON FOR EXAM: Female, 72 years old. UTI TECHNIQUE: Ultrasound evaluation of the kidneys was performed with real-time and static ruelas-scale imaging. COMPARISON: None. FINDINGS: RIGHT KIDNEY: Normal location of the right kidney, which is normal in size. The right kidney measures 9.9 x 5.0 x 4.3 cm. There is a normal cortex of the right kidney. The renal cortex measures 1.0 cm. There is no right renal mass or cyst. There are no right renal calculi. There is no right hydronephrosis. DISTAL RIGHT URETER: There is non-visualization of the distal right ureter. There is no demonstrated right ureterovesical junction calculus. There is a visualized right ureteral jet. LEFT KIDNEY: Normal location of the left kidney, which is normal in size. The left kidney measures 9.9 x 5.5 x 4.7 cm. There is a normal cortex of the left kidney. The renal cortex measures 1.0 cm. There is no left renal mass or cyst. There are no left renal calculi. There is no left hydronephrosis. DISTAL LEFT URETER: There is non-visualization of the distal left ureter. There is no demonstrated left ureterovesical junction calculus. There is a visualized left ureteral jet. AORTA: There is no elongation or tortuosity of the abdominal aorta. Aorta measures: Proximal cm. Middle cm. Distal cm. Aorta measure transversely: Proximal cm. Middle cm. Distal cm. There is no demonstrated aneurysm.. I.V.C.: The IVC is patent. BLADDER: The distended urinary bladder has a volume of 43.6 ml. The empty urinary bladder has a volume of 13.7 ml. There is a wall thickness and urinary bladder 5.1 mm. This is likely due to incomplete bladder distention. There is no demonstrated mass within the urinary bladder. There are no demonstrated bladder calculi. US/Kidney and Bladder IMPRESSION: Kidneys normal. Prevoid bladder incompletely distended but otherwise normal. Bladder wall thickening likely due to incomplete distention. Electronically Signed: Flavio Guerrero MD, YOSHI at 13:56 EDT ,
== END | disposition home or self-care (01) ==
PROVIDERS: PCP Family Medicine; Referring Provider Family Medicine; Visit Provider Family Medicine
DX: N39.0 Urinary tract infection, site not specified (principal)
CPT/HCPCS: 76770

== ENCOUNTER → 2022-09-01 | Outpatient (CLI) | payer MEDICARE, SELFPAY ==
--- NOTE | 2022-09-01 13:10 | RAD_ITS ---
EXAM: XR LUMBOSACRAL SPINE COMPLETE WITH FLEXION/EXTENSION, 6 OR MORE VIEWS CLINICAL INDICATION: ACUTE R LUMBAR RADICULOPATHY TECHNIQUE: Lateral, frontal, oblique and lateral flexion/extension views of the lumbar spine and sacrum. This report was created using [employer] report i-[employer] technology. COMPARISON: None. FINDINGS: VERTEBRAE: Unremarkable. Preserved vertebral body height. No fracture. No spondylolisthesis. Preservation of the normal lumbar lordosis. No significant facet arthropathy. No instability. DISC SPACES: There is facet hypertrophy with severe bony neural foraminal narrowing at L4-5. There is disc space narrowing at L5-S1. GASTROINTESTINAL TRACT: Unremarkable as visualized. Included bowel gas pattern is non-obstructive. RAD/L/S Spine w Bend Min 6 Vw IMPRESSION: 1. No acute osseous abnormalities. 2. Degenerative changes in the lower lumbar spine with facet hypertrophy and disc space narrowing greatest at L4-5 and L5-S1. Electronically Signed: Tito Rivera MD at 17:46 EST ,
== END | disposition home or self-care (01) ==
LOC: RAD 12:48
PROVIDERS: PCP Family Medicine; Referring Provider Family Medicine; Visit Provider Family Medicine
DX: M54.16 Radiculopathy, lumbar region (principal)
CPT/HCPCS: 72114

== ENCOUNTER → 2022-12-25 | Outpatient (CLI) | payer MEDICARE, SELFPAY ==
[2022-12-25 08:52] LABS: ALB/GLOB Ratio 1.1 RATIO (0.9-2.4); AST(SGOT) 15 U/L (15-37); Alanine Aminotransfer ALT/SGPT 20 U/L (13-56); Albumin, Serum 3.6 g/dL (3.2-5.0); Alkaline Phosphatase 102 U/L (45-117); Anion Gap 3 (5-15); BUN 19 mg/dL (7-18); BUN/Creat Ratio 19.1 RATIO (10-20); Calcium,Total 8.9 mg/dL (8.5-10.1); Chloride 108 mmol/L (98-107); Cholesterol 152 mg/dL (200); Creatinine, Serum 0.99 mg/dL (0.55-1.02); EST Glomerular Filtration Rate 58 mL/min (>60); Est Glom Filt Rate - Afr Amer 70 mL/min (>60); Globulin 3.4 g/dL (2.2-4.2); Glucose 110 mg/dL (74-106); High Density Lipoprotein 61 mg/dL; Potassium 4.2 mmol/L (3.5-5.1); Sodium Level 138 mmol/L (136-145); Triglycerides 123 mg/dL; Very Low Density Lipoprotein 25 mg/dL (5-40)
[2022-12-25 08:54] LABS: Microalbumin,Random Urine 38.5 mg/L (NO RANGE EST.); Microalbumin:Creatinine Ratio 40.1 mg/g CRE (<30 mg/g CRE)
[2022-12-25 10:49] LABS: Hemoglobin A1c 6.4 % (3.8-5.6)
== END | disposition home or self-care (01) ==
LOC: LAB 07:56
PROVIDERS: PCP Family Medicine; Referring Provider Family Medicine; Visit Provider Family Medicine
DX: E11.69 Type 2 diabetes mellitus with other specified complication (principal); I10 Essential (primary) hypertension; Z79.899 Other long term (current) drug therapy
CPT/HCPCS: 36415; 80053; 80061; 82043; 82570; 83036

== ENCOUNTER → 2023-07-05 | Outpatient (CLI) | payer MEDICARE, SELFPAY ==
[2023-07-05 10:01] LABS: Albumin, Serum 3.6 g/dL (3.2-5.0); BUN 20 mg/dL (7-18); BUN/Creat Ratio 19.6 RATIO (10-20); Calcium,Total 8.4 mg/dL (8.5-10.1); Chloride 108 mmol/L (98-107); Creatinine, Serum 1.02 mg/dL (0.55-1.02); EST Glomerular Filtration Rate 56 mL/min (>60); Est Glom Filt Rate - Afr Amer 68 mL/min (>60); Glucose 111 mg/dL (74-106); Phosphorus 2.9 mg/dL (2.5-4.9); Potassium 4.2 mmol/L (3.5-5.1); Sodium Level 139 mmol/L (136-145)
[2023-07-05 10:41] LABS: Microalbumin,Random Urine 87.4 mg/L (NO RANGE EST.); Microalbumin:Creatinine Ratio 97.9 mg/g CRE (<30 mg/g CRE)
[2023-07-05 10:52] LABS: Hemoglobin A1c 6.3 % (3.8-5.6)
== END | disposition home or self-care (01) ==
LOC: LAB 08:58
PROVIDERS: PCP Family Medicine; Referring Provider Family Medicine; Visit Provider Family Medicine
DX: E11.59 Type 2 diabetes mellitus with other circulatory complications (principal); E11.21 Type 2 diabetes mellitus with diabetic nephropathy; R80.9 Proteinuria, unspecified
CPT/HCPCS: 36415; 80069; 82043; 82570; 83036

== ENCOUNTER → 2023-08-03 | Outpatient (CLI) | payer MEDICARE, SELFPAY ==
[2023-08-03 14:42] LABS: Mucous, Urine 0 SEEN /hpf (<or=2+)
[2023-08-03 15:09] LABS: Color, Urine Yellow (Yellow); Glucose, Dipstick Normal (Normal); Ketone-Dipstick Negative (Negative); Leukocyte Esterase-Dipstick 500 /ul (Negative); Nitrite-Dipstick Positive (Negative); Occult Blood-Urine 10 /ul (Negative); Protein-Dipstick 15 mg/dl (Negative); Urine Bilirubin Dipstick Negative (Negative); Urine Clarity Sl. Cloudy (Clear); Urine Urobilinogen Normal (Normal)
[2023-08-03 15:51] LABS: Bacteria 1+ /hpf (None Seen); White Blood Cells 50-100 SEEN /hpf (0-5)
[2023-08-03 15:52] LABS: Red Blood Cells-Urine 0-5 SEEN /hpf (0-5); Squamous Epithelial Cells - UA 0-5 SEEN /hpf (5-10)
== END | disposition home or self-care (01) ==
LOC: LAB 14:10
PROVIDERS: PCP Family Medicine; Referring Provider Family Medicine; Visit Provider Family Medicine
DX: N39.0 Urinary tract infection, site not specified (principal)
CPT/HCPCS: 81001; 87077; 87086; 87088; 87186

== ENCOUNTER → 2023-09-21 | Outpatient (CLI) | payer MEDICARE, SELFPAY ==
--- NOTE | 2023-09-21 12:44 | US_ITS ---
STUDY: RENAL ULTRASOUND - COMPLETE REASON FOR EXAM: Female, 73 years old. UTI TECHNIQUE: Ultrasound evaluation of the kidneys was performed with real-time and static ruelas-scale imaging. COMPARISON: 07/08/2022 FINDINGS: RIGHT KIDNEY: Normal location of the right kidney, which is normal in size. The right kidney measures 10.4 x 5.2 x 4.2 cm. There is a normal cortex of the right kidney. The renal cortex measures 1.1 cm. There is no right renal mass or cyst. There are no right renal calculi. There is no right hydronephrosis. DISTAL RIGHT URETER: There is non-visualization of the distal right ureter. There is no demonstrated right ureterovesical junction calculus. There is a visualized right ureteral jet. LEFT KIDNEY: Normal location of the left kidney, which is normal in size. The left kidney measures 9.9 x 4.9 x 4.9 cm. There is a normal cortex of the left kidney. The renal cortex measures 1.4 cm. There is no left renal mass or cyst. There are no left renal calculi. There is no left hydronephrosis. DISTAL LEFT URETER: There is non-visualization of the distal left ureter. There is no demonstrated left ureterovesical junction calculus. There is a visualized left ureteral jet. I.V.C.: The IVC is patent. BLADDER: The distended urinary bladder has a volume of 158 ml. Wall measures 3 mm per There is a normal wall thickness of the distended urinary bladder. There is no demonstrated mass within the urinary bladder. There are no demonstrated bladder calculi. US/Kidney and Bladder IMPRESSION: No evidence of hydronephrosis or renal mass. Electronically Signed: Vance Rodriguez DO at 14:00 EST ,
== END | disposition home or self-care (01) ==
LOC: US 12:41
PROVIDERS: PCP Family Medicine; Referring Provider Urology; Visit Provider Urology
DX: N39.0 Urinary tract infection, site not specified (principal)
CPT/HCPCS: 76770

== ENCOUNTER → 2024-01-16 | Outpatient (CLI) | payer MEDICARE, SELFPAY ==
[2024-01-16 09:20] LABS: Hematocrit 40.4 % (37-47); Hemoglobin 13.1 g/dL (12.0-15.0); Mean Corp Hgb Conc 32.4 g/dL (32-36); Mean Corpuscular Hgb 28.4 pg (27.0-32.0); Mean Corpuscular Volume 87.4 fL (81-99); Mean Platelet Vol. 9.4 fl (6.2-12.0); Platelet Count 263 K/mm3 (150-450); RBC Distribution Width SD 41.1 fl (35.1-43.9); Red Blood Count 4.62 M/mm3 (4.2-5.4); White Blood Count 8.6 K/mm3 (4.4-11.0)
[2024-01-16 09:32] LABS: Protein, Urine (Random) 11.7 mg/dL (<11.9); Protein:Creat Ratio 88 mg/g CRE (0-200)
[2024-01-16 09:48] LABS: PTHIN 130.3 pg/mL (18.4-80.1)
[2024-01-16 09:51] LABS: Vitamin D,25 Hydroxy 34.2 ng/mL
[2024-01-16 10:14] LABS: ALB/GLOB Ratio 1.1 RATIO (0.9-2.4); AST(SGOT) 17 U/L (15-37); Alanine Aminotransfer ALT/SGPT 17 U/L (13-56); Albumin, Serum 3.6 g/dL (3.2-5.0); Alkaline Phosphatase 106 U/L (45-117); Anion Gap 5 (5-15); BUN 22 mg/dL (7-18); BUN/Creat Ratio 20.6 RATIO (10-20); Calcium,Total 8.7 mg/dL (8.5-10.1); Chloride 107 mmol/L (98-107); Cholesterol 153 mg/dL (200); Creatinine, Serum 1.07 mg/dL (0.55-1.02); EST Glomerular Filtration Rate 53 mL/min (>60); Est Glom Filt Rate - Afr Amer 64 mL/min (>60); Globulin 3.2 g/dL (2.2-4.2); Glucose 152 mg/dL (74-106); High Density Lipoprotein 52 mg/dL; Potassium 4.7 mmol/L (3.5-5.1); Protein, Total 6.8 g/dL (6.4-8.2); Sodium Level 138 mmol/L (136-145); Triglycerides 119 mg/dL; Very Low Density Lipoprotein 24 mg/dL (5-40)
[2024-01-16 12:23] LABS: Hemoglobin A1c 6.7 % (3.8-5.6)
== END | disposition home or self-care (01) ==
LOC: LAB 08:31
PROVIDERS: PCP Family Medicine; Referring Provider Family Medicine; Visit Provider Family Medicine
DX: E11.59 Type 2 diabetes mellitus with other circulatory complications (principal); E11.22 Type 2 diabetes mellitus with diabetic chronic kidney disease; N18.31 Chronic kidney disease, stage 3a; K21.9 Gastro-esophageal reflux disease without esophagitis; Z79.899 Other long term (current) drug therapy
CPT/HCPCS: 36415; 80053; 80061; 82306; 82570; 83036; 83970; 84156; 85027

== ENCOUNTER → 2024-09-07 | Outpatient (CLI) | payer MEDICARE, SELFPAY ==
--- NOTE | 2024-09-07 12:49 | RAD_ITS ---
STUDY: X-RAY CHEST REASON FOR EXAM: Female, 74 years old. Cough with fever TECHNIQUE: PA and lateral views of the chest. COMPARISON: Comparison is made with prior study dated January 16, 2022. FINDINGS: There is hyperinflation of the lungs consistent with chronic obstructive lung disease (COPD). Prominent right paracardiac fat pad. No definite infiltrate is seen. There is no demonstrated pleural abnormality. Normal size heart. Normal mediastinum and jose roberto. Normal visualized pulmonary arteries. There is atherosclerotic calcification of the aortic arch with tortuosity. There are diffuse degenerative changes of the visualized thoracic spine. Healed fracture of the surgical neck of the proximal left humerus. There is no demonstrated abnormality of the visualized soft tissue structures of the upper abdomen. RAD/Chest PA and Lateral IMPRESSION: Hyperinflation and mild basilar scarring. No definite infiltrate is seen. Electronically Signed: Renzo Navarrete MD at 13:48 EST ,
== END | disposition home or self-care (01) ==
PROVIDERS: PCP Family Medicine; Referring Provider Physician Assistant Surgical; Visit Provider Physician Assistant Surgical
DX: J20.9 Acute bronchitis, unspecified (principal)
CPT/HCPCS: 71046

== ENCOUNTER → 2024-10-31 | Outpatient (CLI) | payer MEDICARE, SELFPAY ==
--- NOTE | 2024-10-31 12:35 | ECHOD_ITS ---
Reason For Study: LV FAILURE Procedure This was a 2D Doppler, Color Flow transthoracic echocardiogram. Exam performed in department. Left Ventricle Normal LV size. Left ventricular systolic function is normal. The left ventricular ejection fraction is 60 %. No regional wall motion abnormalities noted. Right Ventricle Normal RV size. Normal systolic function. Atria Normal left atrium. Normal right atrium. Mitral Valve Normal mitral valve. Tricuspid Valve Normal tricuspid valve. Mild (1+) tricuspid valve insufficiency. Aortic Valve Trisinus/trileaflet aortic valve. Pulmonic Valve Normal pulmonic valve. Great Vessels Normal aortic root. The pulmonary artery is normal size. Inferior vena cava collapse with respiration. Pericardium/Pleural No pericardial effusion. MMode/2D Measurements & Calculations LVIDd: 4.2 cm IVSd: 1.2 cm LVOT diam: 2.1 cm LVIDs: 2.5 cm LVPWd: 1.0 cm LVOT area: 3.6 cm2 RVDd: 2.9 cm FS: 41.0 % _ asc Aorta Diam: 3.7 cm LAV(MOD-bp): 27.5 ml LVAd ap4: 13.5 cm2 LAV(MOD-bp) Indexed: 15.7 ml/m2 LVLd ap4: 6.0 cm LAV(MOD-sp2): 33.5 ml EDV(MOD- sp4): 25.8 ml LAV(MOD-sp4): 22.6 ml EDV(sp4- el): 25.7 ml LVAs ap4: 7.7 cm2 LVLs ap4: 5.2 cm ESV(MOD- sp4): 9.5 ml ESV(sp4- el): 9.6 ml EF(MOD- sp4): 63.2 % EF(sp4- el): 62.5 % _ LVAd ap2: 16.5 cm2 SV(MOD-sp4): 16.3 ml SV(MOD- sp2): 23.0 ml LVLd ap2: 6.1 cm SI(MOD-sp4): 9.3 ml/m2 SI(MOD- sp2): 13.1 ml/m2 EDV(MOD-sp2): 37.7 ml EDV(sp2-el): 38.0 ml LVAs ap2: 9.8 cm2 LVLs ap2: 5.4 cm ESV(MOD-sp2): 14.7 ml ESV(sp2-el): 15.0 ml EF(MOD-sp2): 61.0 % _ SV(sp4-el): 16.1 ml Ao sinus diam: 3.[address] Junction: 2.6 cm _ LA dimension(2D): 3.4 cm LA A4 area: 10.8 cm2 RA A4 area: 9.2 cm2 _ TAPSE: 1.5 cm Time Measurements MV dec time: 0.29 sec Doppler Measurements & Calculations MV E max sylvester: 46.3 cm/sec Lat Peak E' Sylvester: 7.3 cm/sec Med Peak E' Sylvester: 6.4 cm/sec MV A max sylvester: 66.4 cm/sec E/E' lat: 6.3 E/E' med: 7.2 MV E/A: 0.70 _ MV dec slope: 162.5 cm/sec2 Ao V2 max: 114.6 cm/sec LV V1 max: 67.7 cm/sec Ao max P.3 mmHg LV V1 max P.8 mmHg Ao V2 mean: 80.9 cm/sec LV V1 mean P.1 mmHg Ao mean P.9 mmHg LV V1 mean: 51.2 cm/sec Ao V2 VTI: 19.9 cm LV V1 VTI: 14.5 cm AV (velocity ratio): 0.73 KAMLA(I,D): 2.6 cm2 KAMLA(V,D): 2.1 cm2 _ SV(LVOT): 51.7 ml PA V2 max: 68.6 cm/sec TR max sylvester: 192.1 cm/sec TR max P.8 mmHg ECHO/Echo Complete Interpretation Summary Normal LV size. Left ventricular systolic function is normal. The left ventricular ejection fraction is 60 %. Mild (1+) tricuspid valve insufficiency. Ordering Physician: Inder Kruse Referring Physician: Inder Kruse Performed By: Samantha Castillo RDCS
== END | disposition home or self-care (01) ==
LOC: CVS 12:34
PROVIDERS: PCP Family Medicine; Referring Provider Family Medicine; Visit Provider Family Medicine
DX: I50.1 Left ventricular failure, unspecified (principal)
CPT/HCPCS: 93306

== ENCOUNTER 2025-02-04 14:22 | Emergency (ER) | payer MEDICARE, SELFPAY ==
[2025-02-04] VITALS (10 sets, daily range): BP systolic 99–131; BP diastolic 60–85; PULSE 71–120; RESP 16–24; TEMP 36.7–37.2; O2SAT 92–98; BMI 30.8
--- NOTE | 2025-02-04 15:13 | EKG12_ITS ---
Test Reason : PALP Blood Pressure : */* mmHG Vent. Rate : 86 BPM Atrial Rate : 86 BPM P-R Int : 158 ms QRS Dur : 90 ms QT Int : 370 ms P-R-T Axes : 36 13 56 degrees QTcB Int : 442 ms Normal sinus rhythm Low voltage QRS Borderline ECG Confirmed by Robert Singh [id number]), editor & co founder RAY KANG ([id number]) on 02/05/2025 9:17:48 AM Referred By: Confirmed By: Robert Singh
[2025-02-04 15:53] LABS: Absolute Lymphocyte Count 1.01 X10^3/uL (0.83-4.51); Absolute Neutrophil Count 14.9 X10^3/uL (2.0-7.7); Basophil# 0.11 X10^3/uL; Basophil% 0.5 % (0-1); Eosinophil# 2.35 X10^3/uL; Eosinophils% 11.5 % (0-5); Hemoglobin 13.8 g/dL (12.0-15.0); Lymphocyte # 1.01 X10^3/ul (0.83-4.51); Lymphocyte % 4.9 % (19-41); Mean Corp Hgb Conc 33.7 g/dL (32-36); Mean Corpuscular Hgb 28.9 pg (27.0-32.0); Mean Platelet Vol. 8.8 fl (6.2-12.0); Monocyte# 1.75 X10^3/uL; Monocyte% 8.5 % (0-10); NRBC Flagged by Analyzer 0 % (0-5); Neutrophil # 14.86 X10^3/uL (2.7-7.7); Neutrophil % 72.7 % (47-70); POSITIVE DIFFERENTIAL YES; Platelet Count 361 K/mm3 (150-450); RBC Distribution Width CV 12.7 % (11.6-14.6); RBC Distribution Width SD 39.8 fl (35.1-43.9); Red Blood Count 4.77 M/mm3 (4.2-5.4); White Blood Count 20.5 K/mm3 (4.4-11.0)
[2025-02-04 15:56] LABS: Differential Indicated SCAN CRITERIA MET
[2025-02-04 16:09] LABS: Anion Gap 12 (5-15); BUN 16 mg/dL (4-19); BUN/Creat Ratio 15.6 RATIO (10-20); Calcium,Total 9.8 mg/dL (7.6-11.0); Carbon Dioxide 23.7 mmol/L (21.0-32.0); Chloride 101 mmol/L (98-108); EST Glomerular Filtration Rate 59 (>60); Glucose 157 mg/dL (70-99); Potassium 4.7 mmol/L (3.3-5.1); Sodium Level 137 mmol/L (133-145); Troponin T High Sensitivity 12 ng/L (<=14)
--- NOTE | 2025-02-04 16:13 | EX.ED.DYSGE1 ---
HPI History of Present Illness Chief Complaint: Palpitations [facility] Medical History (Updated 02/04/25 @ 16:52 by Maricamren Arenas) Hx: UTI (urinary tract infection) Hyperlipidemia Aortic calcification GERD (gastroesophageal reflux disease) Restless legs syndrome YESY (obstructive sleep apnea) Palpitations Allergic dermatitis Hypertension Diabetes Home Medications ?Medication ?Instructions ?Recorded ?Last Taken ?Type cholecalciferol (vitamin D3) 50 50 mcg PO QDAY 11/13/24 Unknown History mcg (2,000 unit) capsule dupilumab 200 mg/1.14 mL 200 mg subcut Q2W 11/13/24 Unknown History subcutaneous pen injector (Dupixent) escitalopram oxalate 10 mg tablet 10 mg PO QDAY 11/13/24 Unknown History lisinopril 2.5 mg tablet 2.5 mg PO QDAY 11/13/24 Unknown History metformin 500 mg tablet 500 mg PO QDAY 11/13/24 Unknown History omeprazole 20 mg capsule,delayed 20 mg PO QDAY PRN 11/13/24 Unknown History release ropinirole 2 mg tablet,extended 4 mg PO QHS 11/13/24 Unknown History release 24 hr semaglutide 1 mg/dose (4 mg/3 mL) 1 mg subcut QWEEK 11/13/24 Unknown History subcutaneous pen injector (Ozempic) Bacillus coagulans 250 million 1 tab PO QDAY 12/06/24 Unknown History cell chewable tablet (Digestive Advantage Probiotic Gummy) simvastatin 20 mg tablet 20 mg PO QHS 12/06/24 Unknown History levofloxacin 750 mg tablet 750 mg PO DAILY 7 days #7 tabs 02/04/25 Unknown Rx Allergy/AdvReac Type Severity Reaction Status Date / Time No Known Allergies Allergy Verified 02/04/25 14:23 Family History Father Heart disease Daughter , age 32 CAD (coronary artery disease) Hx of CABG Daughter SVT (supraventricular tachycardia) Blood clotting disorder Asthma Pulmonary embolus Heart disease Surgical History History of eye surgery History of colonoscopy History of section History of umbilical hernia repair Bilateral artificial lens implant Social History Smoking Status: Never smoker alcohol intake: never substance use type: does not use EXAM Physical Exam Const Vital Signs: 02/04/25 14:23 02/04/25 16:07 02/04/25 16:07 Temperature 98.1 F 98.3 F Temperature Source Oral Oral Pulse Rate 120 H 85 Respiratory Rate 22 H 24 H Respiratory Effort Blood Pressure 131/85 H 116/68 Blood Pressure Mean 100 84 Pulse Ox 92 93 Oxygen Delivery Method Room Air Room Air Room Air 02/04/25 16:52 02/04/25 17:00 02/04/25 18:00 Temperature 98.9 F 98.4 F Temperature Source Oral Oral Pulse Rate 84 77 Respiratory Rate 19 H 21 H Respiratory Effort Normal Blood Pressure 99/60 108/74 Blood Pressure Mean 73 85 Pulse Ox 98 95 Oxygen Delivery Method Room Air 02/04/25 19:10 02/04/25 20:02 02/04/25 22:00 Temperature 98.3 F Temperature Source Oral Pulse Rate 71 78 Respiratory Rate 16 18 Respiratory Effort Blood Pressure 110/68 116/60 108/72 Blood Pressure Mean 82 78 84 Pulse Ox 93 95 Oxygen Delivery Method Room Air Room Air 02/04/25 23:00 02/04/25 23:27 Temperature 98.3 F Temperature Source Pulse Rate 85 85 Respiratory Rate 16 Respiratory Effort Blood Pressure 108/72 Blood Pressure Mean 84 Pulse Ox 95 95 Oxygen Delivery Method Room Air MDM MDM MDM Narrative Medical decision making narrative: HISTORY OF PRESENT ILLNESS: Chief complaint: Palpitations 74-year-old female history of CAD, hyperlipidemia, GERD, YESY, palpitations, hypertension, T2DM presents concern for high heart rate. No she is at urgent care. She has had fever and chills associated with a UTI. No she is being treated with Macrobid. Denies chest pain, shortness of breath REVIEW OF SYSTEMS: Pertinent positives: Palpitations, UTI Pertinent negatives: Chest pain, flank pain, vomiting, bleeding diathesis PHYSICAL EXAM: Nursing triage notes reviewed, Vital signs reviewed Constitutional: please see mdm HENT: MMM Eyes: Pupils equal round and reactive to light, Extraocular muscles intact Neck: No stridor, no JVD, full neck ROM Lungs: Clear to auscultation, No wheezing or rales. No increased work of breathing, no conversational dyspnea, no accessory muscle use, no nasal flaring. No respiratory distress noted Heart: Regular rate and rhythm, No murmurs, No rubs and No gallops, 2+ distal pulses (radial, femoral, posterior tibial) in all extremities Abdomen: Soft, there is no tenderness, rigidity, rebound or guarding, no obvious peritoneal signs, no palpable pulsatile abdominal masses, no auscultated abdominal bruit : No CVAT Extremities: No edema Neuro: No new focal neurological deficits, cranial nerves II through XII intact, 5/5 strength in all present extremities. Intact sensation to light touch in all present extremities, 2+ reflexes bilateral patella tendons. Skin: No rash or lesions noted MEDICAL DECISION MAKING: Chief Complaint: please see HPI External records reviewed: Reviewed prior outpatient cardiology note Factors affecting care: CAD, palpitations Social determinants of health: none History obtained from others: none Consults: none [facility] Narrative: Patient was initially tachycardic with initial heart rate of 112, tachypneic to respiratory 22, saturating 92% on room air. Exam with no significant abdominal tenderness. Patient appeared well. Did not appear in distress or toxic. No focal cardiopulmonary abnormalities. Patient was given a dose of IV ceftriaxone given concern for UTI. I considered the following differential diagnosis: UTI, sepsis, arrhythmia, anemia, electro disturbance, ACS ALL IMAGES (IF OBTAINED) HAVE BEEN PERSONALLY REVIEWED AND INTERPRETED BY MYSELF. Triage labs were placed including CBC, BMP, troponin, environmental monitoring technician, EKG and chest x-ray CBC showed marked leukocytosis Consistent with systemic inflammation, no anemia or thrombocytopenia was noted BMP without evidence of significant electrolyte abnormalities, no anion gap, no acute kidney injury. High-sensitivity troponin is negative, no evidence of myocardial ischemia Chest x-ray was read reviewed personally myself showed evidence of possible right lower lobe pneumonia After evaluating patient I added lactate, urine, urine culture and a CT scan abdomen pelvis Lactate was added secondary to leukocytosis and initial tachycardia. Lactate was wnl indicating no end-organ hypoperfusion and/or hypoxia. High-sensitivity troponin is negative, no evidence of myocardial ischemia CT scan abdomen pelvis is pending showed no evidence of acute surgical pathology Urinalysis with signs of urinary inflammation Urine culture pending On reevaluation patient's vital signs improved her blood pressure improved 108/72, heart improved to 85, respiratory rate 16. She was able to ambulate here without significant hypoxia. I suspect patient's presentation secondary to pneumonia as well as UTI. Patient encouraged to stop Macrobid and start levofloxacin. Patient was written a prescription for levofloxacin to cover pulmonary and urinary bacteria. Strict return precautions were discussed. The patient and/or family, caregivers express understanding. The patient and/or family, caregivers agrees with the plan. Shared decision making: I will have a discussion with the patient and or visitors regarding risk/benefits of further testing or admission. They will be made aware of of the risk/benefits inherent in this decision they will be given the opportunity to voice understanding. Total critical care time today provided was at least 0 minutes. This excludes separately billable procedures. Critical care time (if documented) is secondary to the patient having high probability of clinically significant/life threatening deterioration in the patient's condition which required my urgent intervention. Impression: 1. Palpitations 2. UTI 3. Community-acquired pneumonia 4. Leukocytosis Dispo: Discharge home This note was generated with [employer] dictation software. It may contain incorrect words, spelling, and punctuation that were not noted in review of the chart prior to signing. Lab Data Labs: Laboratory Results - last 24 hr 02/04/25 02/04/25 02/04/25 15:41 16:38 18:02 WBC 20.5 H RBC 4.77 Hgb 13.8 Hct 41.0 MCV 86.0 MCH 28.9 MCHC 33.7 RDW Std Deviation 39.8 RDW Coeff of Kathleen 12.7 Plt Count 361 MPV 8.8 Immature Gran % (Auto) 1.900 H Neut % (Auto) 72.7 H Lymph % (Auto) 4.9 L Young % (Auto) 8.5 Eos % (Auto) 11.5 H Baso % (Auto) 0.5 Absolute Neuts (auto) 14.9 H Absolute Lymphs (auto) 1.01 Nucleated RBC % 0 Platelet Estimate ADEQUATE Sodium 137 Potassium 4.7 Chloride 101 Carbon Dioxide 23.7 Anion Gap 12 BUN 16 Creatinine 1.00 Estim Creat Clear Calc 44.70 L Est GFR (MDRD) Non-Af 59 L BUN/Creatinine Ratio 15.6 Glucose 157 H Lactic Acid 1.4 Calcium 9.8 Troponin T High Sens 12 Troponin T Hi Sens 2 Hr 14 Urine Color Urine Clarity Urine pH Ur Specific [place] Urine Protein Urine Glucose (UA) Urine Ketones Urine Occult Blood Urine Nitrite Urine Bilirubin Urine Urobilinogen Ur Leukocyte Esterase Urine RBC Urine WBC Ur Squamous Epith Cells Ur Transition Epith Cell Urine Bacteria Urine Mucus 02/04/25 19:07 WBC RBC Hgb Hct MCV MCH MCHC RDW Std Deviation RDW Coeff of Kathleen Plt Count MPV Immature Gran % (Auto) Neut % (Auto) Lymph % (Auto) Young % (Auto) Eos % (Auto) Baso % (Auto) Absolute Neuts (auto) Absolute Lymphs (auto) Nucleated RBC % Platelet Estimate Sodium Potassium Chloride Carbon Dioxide Anion Gap BUN Creatinine Estim Creat Clear Calc Est GFR (MDRD) Non-Af BUN/Creatinine Ratio Glucose Lactic Acid Calcium Troponin T High Sens Troponin T Hi Sens 2 Hr Urine Color Yellow Urine Clarity Sl. Cloudy Urine pH 6.0 Ur Specific [place] 1.010 Urine Protein 30 H Urine Glucose (UA) Normal Urine Ketones Negative Urine Occult Blood 10 H Urine Nitrite Negative Urine Bilirubin Negative Urine Urobilinogen Normal Ur Leukocyte Esterase 500 H Urine RBC 5-10 SEEN Urine WBC 25-50 SEEN Ur Squamous Epith Cells 5-10 SEEN Ur Transition Epith Cell 0-5 SEEN Urine Bacteria 0 SEEN Urine Mucus 0 SEEN Radiography Diagnostic Testing: Clinical Impression(s) from Imaging Studies Chest X-Ray 02/04/25 16:15 IMPRESSION: Bibasilar atelectasis or pneumonia. Reading Location: [facility] Abdomen/Pelvis CT 02/04/25 16:30 IMPRESSION: The gallbladder is mildly prominent in size without evidence of wall thickening, pericholecystic free fluid or adjacent fat stranding. No intra or extrahepatic biliary ductal dilation. May represent a prolonged fasting state, clinically correlate. Diverticulosis without diverticulitis. Very small right pleural effusion with adjacent posterior recess atelectasis. Reading Location: [facility] Discharge Plan Triage Chief Complaint: Palpitations ED Provider: Shine Haro Dx/Rx/DC Orders Instructions: Pneumonia Community Acquired, ED UTIs Women Prescriptions: New levofloxacin 750 mg tablet 750 mg PO DAILY 7 Days Qty: 7 0RF No Action Dupixent Pen 200 mg/1.14 mL pen injector 200 mg subcut Q2W escitalopram oxalate 10 mg tablet 10 mg PO QDAY lisinopril 2.5 mg tablet 2.5 mg PO QDAY omeprazole 20 mg capsule,delayed release(DR/EC) 20 mg PO QDAY PRN Ozempic 1 mg/dose (4 mg/3 mL) pen injector 1 mg subcut QWEEK cholecalciferol (vitamin D3) 50 mcg (2,000 unit) capsule 50 mcg PO QDAY Digestive Advantage Prob Gummy 250 million cell tablet,chewable 1 tab PO QDAY metformin 500 mg tablet 500 mg PO QDAY simvastatin 20 mg tablet 20 mg PO QHS ropinirole 2 mg tablet extended release 24 hr 4 mg PO QHS Primary Care Provider: Inder Kruse Referrals: Inder Kruse MD [Primary Care Provider] - Activity Restrictions/Additional Instructions: Thank you for trusting us with your care today! Your labs and images are consistent with pneumonia and UTI I have changed your antibiotic to levofloxacin to cover both source of infection with 1 agent Please take Tylenol (2 pills, 650 mg), ibuprofen (2 pills, 400 mg) every 6 hours as needed for pain and fever control. Please return to the emergency department if your symptoms change or worsen. Please follow with your primary care physician for further outpatient evaluation and management. Print Language: Occitan Disposition Disposition: Home, Self Care Discharge Date/Time: 02/04/25 23:28
--- NOTE | 2025-02-04 16:15 | RAD_ITS ---
EXAM: XR Chest, 1 View CLINICAL INDICATION: CHEST PAIN TECHNIQUE: Frontal view of the chest. COMPARISON: No relevant prior studies available. FINDINGS: LUNGS AND PLEURAL SPACES: Bibasilar atelectasis or pneumonia. No pneumothorax. HEART: Unremarkable. No cardiomegaly. MEDIASTINUM: Unremarkable. Normal mediastinal contour. BONES/JOINTS: Unremarkable. No acute fracture. RAD/Chest 1 View (Portable) IMPRESSION: Bibasilar atelectasis or pneumonia. Reading Location: [id number]
--- NOTE | 2025-02-04 16:30 | CT_ITS ---
PROCEDURE: ABDOMEN/PELVIS W IV CONT ONLY 02/04/2025 REASON FOR EXAM: ABDOMINAL PAIN, LEUKOCYTOSIS TECHNIQUE: Abdomen and pelvis CT with intravenous contrast. Coronal and Sagittal reconstruction series were provided. PATIENT PREPARATION: Per protocol ORAL CONTRAST TYPE: None. CONTRAST: 100 cc Isovue 370 IV One or more dose reduction techniques were used (e.g., Automated exposure control, adjustment of the mA and/or kV according to patient size, use of iterative reconstruction technique. RADIATION DOSE SUMMARY: CTDlvol: 19.21 mGy DLP: 893.32 mGycm COMPARISON: 02/11/2020 FINDINGS: Partially imaged scar at the tip of the lingula. Very small right pleural effusion with adjacent posterior recess atelectasis. There is again evidence of an anterior right diaphragmatic fat containing hernia into the anterior mediastinum for example axial 2 and coronal 34. The liver, adrenal glands, kidneys, pancreas and spleen appear within limits. The gallbladder is mildly prominent in size without evidence of wall thickening, pericholecystic free fluid or adjacent fat stranding. No intra or extrahepatic biliary ductal dilation. May represent a prolonged fasting state, clinically correlate. Aortoiliac atherosclerotic calcification. No abdominal aortic aneurysm. No adenopathy. No bowel dilation or free air. Thin, atretic appearing appendix without secondary signs. Diverticulosis without diverticulitis. No evidence of bowel wall thickening. The ovaries/adnexa, uterus and bladder appear within limits. Small fat containing left inguinal hernia without stranding again noted. No free fluid. Lower lumbar spondylosis with facet degenerative changes again seen. CT/Abdomen/Pelvis W IV Cont ONLY IMPRESSION: The gallbladder is mildly prominent in size without evidence of wall thickening , pericholecystic free fluid or adjacent fat stranding. No intra or extrahepatic biliary ductal dilation. May represent a pr olonged fasting state, clinically correlate. Diverticulosis without diverticulitis. Very small right pleural effusion with adjacent posterior recess atelectasis. Reading Location: [id number]
[2025-02-04] MEDS: 0.9% Normal Saline (500mL Bag) 500 ML 999 ML IV (16:37)
[2025-02-04] MEDS: Ceftriaxone 1 GM/50 ML BAG IV (16:45)
[2025-02-04 17:06] LABS: Lactic Acid 1.4 mmol/L (0.0-2.0)
[2025-02-04 17:28] LABS: Platelet Estimate ADEQUATE (ADEQ)
[2025-02-04 18:38] LABS: Troponin T High Sens 2 HR 14 ng/L (<=14)
[2025-02-04 19:16] LABS: Bacteria 0 SEEN /hpf (None Seen); Mucous, Urine 0 SEEN /hpf (<or=2+)
--- NOTE | 2025-02-04 20:04 | ED.RN ---
called lab to inquire about urine not showing received
[2025-02-04 20:13] LABS: Color, Urine Yellow (Yellow); Glucose, Dipstick Normal (Normal); Ketone-Dipstick Negative (Negative); Leukocyte Esterase-Dipstick 500 /ul (Negative); Nitrite-Dipstick Negative (Negative); Occult Blood-Urine 10 /ul (Negative); Protein-Dipstick 30 mg/dl (Negative); Urine Bilirubin Dipstick Negative (Negative); Urine Clarity Sl. Cloudy (Clear); Urine Urobilinogen Normal (Normal)
[2025-02-04 21:20] LABS: White Blood Cells 25-50 SEEN /hpf (0-5)
[2025-02-04 21:21] LABS: Red Blood Cells-Urine 5-10 SEEN /hpf (0-5); Squamous Epithelial Cells - UA 5-10 SEEN /hpf (5-10); Transitional Epithelial - Ur 0-5 SEEN /hpf (0-5)
== END 2025-02-04 23:28 | disposition home or self-care (01) ==
PROVIDERS: Emergency Provider Emergency Medicine; PCP Family Medicine; Visit Provider Emergency Medicine
DX: J18.9 Pneumonia, unspecified organism (principal); E11.9 Type 2 diabetes mellitus without complications; N39.0 Urinary tract infection, site not specified; R00.2 Palpitations; D72.829 Elevated white blood cell count, unspecified; I10 Essential (primary) hypertension; E78.5 Hyperlipidemia, unspecified; K21.9 Gastro-esophageal reflux disease without esophagitis; I25.10 Atherosclerotic heart disease of native coronary artery without angina pectoris; G25.81 Restless legs syndrome; G47.33 Obstructive sleep apnea (adult) (pediatric); Z79.85 Long-term (current) use of injectable non-insulin antidiabetic drugs; Z79.84 Long term (current) use of oral hypoglycemic drugs; Z79.899 Other long term (current) drug therapy
CPT/HCPCS: 71045; 74177; 80048; 81001; 83605; 84484; 85025; 87086; 87088; 93005; 96365; 99283; Q9967; A4216

== ENCOUNTER → 2025-02-13 | Outpatient (CLI) | payer MEDICARE, SELFPAY ==
[2025-02-13 11:45] LABS: ALB/GLOB Ratio 1.5 RATIO (0.9-2.4); AST(SGOT) 16 U/L (<=31); Alanine Aminotransfer ALT/SGPT 6 U/L (<=34); Albumin, Serum 3.9 g/dL (3.4-4.8); Alkaline Phosphatase 83 U/L (35-104); Anion Gap 12 (5-15); BUN 14 mg/dL (4-19); BUN/Creat Ratio 14.9 RATIO (10-20); Calcium,Total 8.9 mg/dL (7.6-11.0); Chloride 104 mmol/L (98-108); Cholesterol 184 mg/dL (<=200); Creatinine, Serum 0.92 mg/dL (0.70-1.20); EST Glomerular Filtration Rate 65 (>60); Globulin 2.6 g/dL (2.2-4.2); Glucose 92 mg/dL (70-99); High Density Lipoprotein 45 mg/dL; Low Density Lipoprotein Calc. 106 mg/dL; Potassium 4.4 mmol/L (3.3-5.1); Protein, Total 6.5 g/dL (5.9-8.4); Sodium Level 139 mmol/L (133-145); Total Bilirubin 0.27 mg/dL (0.00-1.30); Triglycerides 162 mg/dL; Very Low Density Lipoprotein 32 mg/dL (5-40); cholesterol:hdl ratio screen 4.06
[2025-02-13 11:51] LABS: PTHIN 85 pg/mL (11-61)
[2025-02-13 11:54] LABS: Hemoglobin A1c 6.4 % (<=5.6)
[2025-02-13 11:59] LABS: Microalbumin,Random Urine < 12.0 mg/L (NO RANGE EST.); Microalbumin:Creatinine Ratio UNABLE TO CALCULATE mg/g CRE
== END | disposition home or self-care (01) ==
LOC: LAB 08:56
PROVIDERS: PCP Family Medicine; Referring Provider Family Medicine; Visit Provider Family Medicine
DX: E11.21 Type 2 diabetes mellitus with diabetic nephropathy (principal); E11.59 Type 2 diabetes mellitus with other circulatory complications; E11.65 Type 2 diabetes mellitus with hyperglycemia; E11.22 Type 2 diabetes mellitus with diabetic chronic kidney disease; N18.31 Chronic kidney disease, stage 3a
CPT/HCPCS: 36415; 80053; 80061; 82043; 82570; 83036; 83970

== ENCOUNTER → 2025-04-22 | Outpatient (CLI) | payer MEDICARE, SELFPAY | END | disposition home or self-care (01) | LOC: LABSPEC 07:33 | PROVIDERS: PCP Family Medicine; Visit Provider Nurse Practitioner Family | DX: R30.0 Dysuria (principal) | CPT/HCPCS: 87077; 87086; 87088; 87186 ==

== ENCOUNTER 2025-06-08 09:30 | Outpatient (CLI) | payer MEDICARE, SELFPAY | END 2025-06-08 23:59 | disposition home or self-care (01) | PROVIDERS: PCP Family Medicine; Referring Provider Nurse Practitioner Family; Visit Provider Nurse Practitioner Family | DX: R30.0 Dysuria (principal) | CPT/HCPCS: 87086 ==

== ENCOUNTER → 2025-07-10 | Outpatient (CLI) | payer MEDICARE, SELFPAY ==
[2025-07-10 10:40] LABS: Anion Gap 11 (5-15); BUN 17 mg/dL (4-19); BUN/Creat Ratio 18.1 RATIO (10-20); Calcium,Total 9.0 mg/dL (7.6-11.0); Carbon Dioxide 23.4 mmol/L (21.0-32.0); Chloride 105 mmol/L (98-108); Glucose 99 mg/dL (70-99); Potassium 4.3 mmol/L (3.3-5.1)
== END | disposition home or self-care (01) ==
LOC: LAB 08:46
PROVIDERS: PCP Family Medicine; Referring Provider Family Medicine; Visit Provider Family Medicine
DX: E11.59 Type 2 diabetes mellitus with other circulatory complications (principal); E11.21 Type 2 diabetes mellitus with diabetic nephropathy
CPT/HCPCS: 36415; 80048; 83036